=== PATIENT | female | born 1945 | race Caucasian/White ===

== ENCOUNTER 2016-10-08 12:34 | Inpatient (IN) | payer OTHER, MEDICARE ==
[~2016-10-08] VITALS: Ht 157.5 cm; Wt 48.5 kg
[~2016-10-08 12:34] MED LIST: ASPI-605 GT; ASPI81TA31 PO; DONE10TA4 GT; DONE10TA44 PO; DULO60CA45 PO; LEVO75TA GT; LEVO75TA7 PO; LISI-607 PO; LISI2.5T2 GT; MELO-270 GT; MELO-270 PO; METO25TA6 PO; OXYB5TAB11 GT; OXYB5TAB11 PO; QUET25TA GT; QUET25TA PO; SULF1TAB48 PO; TRIA60LO4 TP
--- NOTE | 2016-10-08 12:48 | NUR ---
Pt brought to bed [facility] , pt on monitor and ekg done.
[2016-10-08] MEDS ORDERED: METO25TA6 GT (12:56)
[2016-10-08] MEDS ORDERED: SULF1TAB48 GT (12:56)
[2016-10-08] MEDS ORDERED: ACET-2154 GT (12:56)
[2016-10-08] MEDS ORDERED: LISI-607 GT (12:56)
[2016-10-08] MEDS ORDERED: DONE10TA44 GT (12:56)
[2016-10-08] MEDS ORDERED: LORAZEPAM 2 MG/1 ML VIAL IM ONE (13:00)
[2016-10-08] MEDS ORDERED: diphenhydrAMINE 50 MG/1 ML VIAL IM ONE (13:00)
[2016-10-08] MEDS ORDERED: HALOPERIDOL LACTATE 5 MG/1 ML VIAL IM ONE (13:00)
--- NOTE | 2016-10-08 13:09 | NUR ---
Pt to ct via [facility].
[2016-10-08 13:12] LABS: BASOPHILS # (AUTO) 0.2 K/uL (0.0-0.2); EOSINOPHILS # (AUTO) 0.1 K/uL (0.0-0.7); EOSINOPHILS % (AUTO) 0.8 % (0.0-7.0); HEMATOCRIT 38.1 % (37.0-47.0); HEMOGLOBIN 12.8 g/dL (12.0-16.0); LYMPHOCYTES # (AUTO) 1.8 K/uL (0.8-4.8); LYMPHOCYTES % (AUTO) 11.6 % (20.5-51.5); MEAN CORPUSCULAR HEMOGLOBIN 32.8 uug (27.0-31.0); MEAN CORPUSCULAR HGB CONC 34 g/dL (32.0-37.0); MEAN CORPUSCULAR VOLUME 97.4 fL (81.0-99.0); MONOCYTES # (AUTO) 0.9 K/uL (0.1-1.30); MONOCYTES % (AUTO) 6.1 % (0.0-11.0); NEUTROPHILS # (AUTO) 12.5 K/uL (1.8-8.9); NEUTROPHILS % (AUTO) 80.5 % (38.5-71.5); PLATELET COUNT (AUTO) 282 K/uL (150-450); RED BLOOD CELL COUNT(AUTO) 3.91 MIL/uL (4.20-5.40); RED CELL DISTRIBUTION WIDTH 12.3 % (11.5-14.5); WHITE BLOOD COUNT (AUTO) 15.5 K/uL (4.0-11.2)
[2016-10-08] MEDS ORDERED: HALOPERIDOL LACTATE 5 MG/1 ML VIAL ONE (13:12)
[2016-10-08] MEDS ORDERED: LORAZEPAM 2 MG/1 ML VIAL ONE (13:12)
[2016-10-08] MEDS ORDERED: diphenhydrAMINE 50 MG/1 ML VIAL ONE (13:12)
[2016-10-08 13:16] LABS: CALCIUM 9.5 mg/dL (8.5-10.1); CHLORIDE 103 mmol/L (98-107); CREATININE 1.3 mg/dL (0.6-1.3); GFR 41 mL/min (>60); GLUCOSE 107 mg/dL (74-106); POTASSIUM 3.9 mmol/L (3.5-5.1); SODIUM SERUM 143 mmol/L (136-145); UREA NITROGEN, BLOOD 25 mg/dL (7-18)
[2016-10-08 13:17] LABS: CARBON DIOXIDE 33 mmol/L (21-32)
[2016-10-08 13:21] LABS: ACETAMINOPHEN 5.8 ug/mL (10-30); ALANINE AMINOTRANSFERASE 18 U/L (14-59); ALBUMIN 3.7 g/dL (3.4-5.0); ALKALINE PHOSPHATASE 70 U/L (50-136); ASPARTATE AMINOTRANSFERASE 22 U/L (15-37); BILIRUBIN,DIRECT 0.2 mg/dL (0.0-0.2); BILIRUBIN,TOTAL 1.1 mg/dL (0.2-1.0); TOTAL PROTEIN, SERUM 7.1 g/dL (6.4-8.2)
[2016-10-08 13:36] LABS: ETHANOL < 3 MG/DL (0-0)
--- NOTE | 2016-10-08 13:38 | NUR ---
PT HAS BUE AND RLE BRUISES, WELL CHEST AND LT OF FACE. PT HAS PREANAL REDNESS.
[2016-10-08 13:46] LABS: *BLOOD, URINE Trace-intact (NEGATIVE); *CLARITY,URINE SLIGHTLY CLOUDY (CLEAR); *COLOR,URINE YELLOW (YELLOW); *KETONES,URINE NEGATIVE (NEGATIVE); *PROTEIN,URINE 1+ (NEGATIVE); NITRITE, URINE NEGATIVE (NEGATIVE); PH,URINE 5.5 (5.0-8.0); UGLUCOSE NEGATIVE (NEGATIVE)
[2016-10-08 13:48] LABS: LEUKOCYTE ESTERASE ,URINE TRACE (NEGATIVE)
[2016-10-08 13:49] LABS: *BILIRUBIN,URIN 1+ (NEGATIVE)
[2016-10-08 13:49] LABS: AMMONIA < 10 umol/L (11-32)
[2016-10-08 13:55] LABS: ICTOTEST POSITIVE (NEGATIVE); RBC,URINE 0-3 /HPF (0-3)
[2016-10-08 13:56] LABS: BACTERIA,URINE NONE SEEN /HPF (NONE SEEN); SQUAMOUS EPITHELIAL CELL,UR MODERATE /HPF (NONE SEEN); YEAST,URINE FEW /HPF (NONE SEEN)
[2016-10-08 14:04] LABS: *AMPHETAMINE, URINE NEGATIVE (NEGATIVE); *BARBITURATE, URINE NEGATIVE (NEGATIVE); *CANNABINOID, URINE NEGATIVE (NEGATIVE); *COCCAINE, URINE NEGATIVE (NEGATIVE); *OPIATE, URINE NEGATIVE (NEGATIVE); *PHENCYCLIDINE SCREEN,URINE NEGATIVE (NEGATIVE)
--- NOTE | 2016-10-08 14:13 | NUR ---
[facility] COLLECTED AND SENT TO LAB, BELONGING LIST COMPLETED.
[2016-10-08] MEDS ORDERED: LEVOFLOXACIN 750MG/D5W 150 ML IV ONE ×2 (14:15→14:28)
[2016-10-08] MEDS ORDERED: IV NORMAL SALINE 1000 ML BAG IV ONE (14:15)
[2016-10-08] MEDS ORDERED: GENTAMICIN SULFATE INJ 80 MG in IV DEXTROSE 5% 100 ML IV ONE (14:15)
[2016-10-08] MEDS ORDERED: GENTAMICIN SULFATE 80 MG/2 ML VIAL ONE (14:28)
[2016-10-08 15:00] VITALS: BP 132/81
--- NOTE | 2016-10-08 15:00 | NUR ---
Admission note Patient admitted to Medsurg unit with Diagnosis of UTI. patient is alert and oriented to self only, patient able to knod her head, confused and disoriented to place time and situation, patient admitted with multiple bruises noted on Bilateral lower extremities and upper extremities in multiple stages of resolving, patient with large bruise on right forearm and right posterior shoulder, patient buttocks also with some redness some excoriation noted a this time, skin integrity issues present on admission , start interventions to decrease any occurrence of further issues. patient is anxious and restless unable to maintain concentration and eye focus during assessment possibly responding to stimuli, patient fearful during assessment , patient explained procedure of assessment during admission to decrease anxiety; patient with g-tube in place, no s/s of infection. patient high fall risk, sitter ordered. Patient has poor insight, attempts to pull at g-tube site, currently with abdominal binder in place, patient with soft mitten on left hand to reduce risk of pulling at g-tube, unable to comprehend. patient difficult to redirect poor insight, judgment impaired.
[2016-10-08] MEDS ORDERED: Z GUARD REMEDY PASTE 57 GM TUBE TOP PRN (16:45)
[2016-10-08] MEDS ORDERED: ONDANSETRON 4 MG/2 ML VIAL IV PRN (17:30)
[2016-10-08] MEDS ORDERED: MAGNESIUM HYDROXIDE 30 ML LIQUID UDC GT PRN ×2 (17:30→17:58)
[2016-10-08] MEDS ORDERED: LORAZEPAM 2 MG/1 ML VIAL IV ONE (18:00)
--- NOTE | 2016-10-08 19:00 | NUR ---
outreach educator TO TAKE F/U PICTURES OF BUTTOCKS BACK, LEFT ANTERIOR SHOULDER, JESUS LOWER EXTREMITIES BRUISING,RIGHT ARM BRUISINGLEFT CALF SCRATCH/REDNESS, SECONDARY TO PT WAS MOVING TOO MUCH.
--- NOTE | 2016-10-08 19:00 | NUR ---
PATIENT AWAKE BUT VERY CONFUSED, RESTLESS, TRIES TO PULL OUT TUBING, IV, GT TUBINGS, HAND MITTENS IN PLACE, CHECK FOR CIRCULATION AND PLACEMENT EVERY 30 MINUTES, SITTER AT BEDSIDE FOR SAFETY. NO SOB, NO CHEST PAIN NOTED.
[2016-10-08] MEDS: IV NS 1000 ML 1,000 ML IV PRN (19:05)
--- NOTE | 2016-10-08 20:17 | NUR ---
Clinical pharmacy note-Gentamicin dosing per pharmacy Subjective: To start gentamicin dosing on this 71 year old female patient for UTI/sepsis Objective: BUN 25 Scr 1.3 WBC 15.5 Temp 97.9 Ht 5'2" Wt 120 lbs Assessment/Plan: Patient had Gentamicn 80mg in ER today at 1437. Will continue Gentamicin 70mg IV every 13 hrs (first dose tomorrow at 0300) and draw peak and trough by 4th dose(not ordered yet) for expected peak 6 and trough 0.93. Will monitor renal function closely to adjust the dose if needed. Will follow daily.
[2016-10-08] MEDS: QUETIAPINE FUMARATE 25 MG TABLET GT PRN (21:30)
[2016-10-08] MEDS: OXYBUTYNIN CHLORIDE 5 MG TABLET GT SCH (21:30)
[2016-10-08] MEDS: DONEPEZIL 10 MG TABLET GT SCH (21:30)
--- NOTE | 2016-10-08 21:30 | NUR ---
PICTURES TAKEN, AND PLACE TO CHART. ABDOMINAL BINDER IN PLACE, CONTINUE 1;1 FOR SAFETY, KEPT CLEAN DRY AND COMFORTABLE.
[2016-10-08] MEDS: Z GUARD REMEDY PASTE 57 GM TUBE TOP SCH (21:41)
[2016-10-08] MEDS: METOPROLOL TARTRATE 25 MG TABLET GT SCH (21:42)
[2016-10-08] MEDS: FLUCONAZOLE 100 MG TABLET PO SCH (21:44)
[2016-10-08] MEDS: FIBERSOURCE HN 1000ML LIQUID GT SCH (22:18)
[2016-10-09] MEDS: GENTAMICIN SULFATE INJ 70 MG in IV DEXTROSE 5% 50 ML IV SCH ×2 (02:18→17:03)
[2016-10-09] MEDS: ACETAMINOPHEN 650 MG/20.3 ML LIQUID UDC GT PRN (02:27)
[2016-10-09] MEDS: IV NS 1000 ML 1,000 ML IV PRN ×2 (03:48→17:46)
[2016-10-09] MEDS: LEVOTHYROXINE SODIUM 75 MCG TABLET GT SCH ×2 (06:10→08:05)
--- NOTE | 2016-10-09 07:21 | NUR ---
PATIENT SLEEP ON AND OFF THROUGHT THE NIGHT, KEPT CLEAN, AND DRY TURN AND REPOSITION, GIVEN TYLENOL FOR PAIN WITH HELP AFTER 30 MIN. NO SOB, NO CHEST PAIN, A FIB. PATIENT HAS MULTIPLE EPISODES OF RESTLESSNESS, TRYING TO PULLED OUT TUBES, TRIED TO JUMP OUT OF THE BED, CONTINUE 1;1 ENDORSED TO NEXT SHIFT.
[2016-10-09 08:00] VITALS: BP 147/78
[2016-10-09] MEDS: METOPROLOL TARTRATE 25 MG TABLET GT SCH ×2 (08:05→17:00)
[2016-10-09] MEDS: OXYBUTYNIN CHLORIDE 5 MG TABLET GT SCH ×2 (08:05→17:00)
[2016-10-09] MEDS: LISINOPRIL 5 MG TABLET GT SCH (08:05)
[2016-10-09] MEDS: QUETIAPINE FUMARATE 25 MG TABLET GT PRN (08:05)
[2016-10-09] MEDS: FLUCONAZOLE 100 MG TABLET PO SCH (08:05)
[2016-10-09] MEDS: MELOXICAM 7.5 MG TABLET GT SCH (08:05)
[2016-10-09] MEDS: Z GUARD REMEDY PASTE 57 GM TUBE TOP SCH ×2 (08:06→21:28)
[2016-10-09] MEDS ORDERED: ACETAMINOPHEN 325 MG TABLET GT SCH (09:00)
[2016-10-09 09:11] LABS: BASOPHILS # (AUTO) 0.1 K/uL (0.0-0.2); BASOPHILS % (AUTO) 1.1 % (0.0-2.0); EOSINOPHILS # (AUTO) 0.3 K/uL (0.0-0.7); HEMATOCRIT 33.7 % (37.0-47.0); HEMOGLOBIN 11.4 g/dL (12.0-16.0); LYMPHOCYTES # (AUTO) 1.7 K/uL (0.8-4.8); LYMPHOCYTES % (AUTO) 12.4 % (20.5-51.5); MEAN CORPUSCULAR HEMOGLOBIN 32.4 uug (27.0-31.0); MEAN CORPUSCULAR HGB CONC 34 g/dL (32.0-37.0); MONOCYTES # (AUTO) 0.8 K/uL (0.1-1.30); NEUTROPHILS # (AUTO) 10.4 K/uL (1.8-8.9); NEUTROPHILS % (AUTO) 78.5 % (38.5-71.5); PLATELET COUNT (AUTO) 247 K/uL (150-450); RED BLOOD CELL COUNT(AUTO) 3.51 MIL/uL (4.20-5.40); WHITE BLOOD COUNT (AUTO) 13.3 K/uL (4.0-11.2)
[2016-10-09 09:15] LABS: CALCIUM 8.8 mg/dL (8.5-10.1); CREATININE 0.9 mg/dL (0.6-1.3); MAGNESIUM 1.9 mg/dL (1.8-2.4); PHOSPHOROUS 3.3 mg/dL (2.5-4.9); POTASSIUM 3.7 mmol/L (3.5-5.1)
[2016-10-09] MEDS ORDERED: ASPIRIN EC 81 MG TABLET.DR PO SCH (10:00)
[2016-10-09] MEDS: ASPIRIN 81 MG TAB.CHEW GT SCH (10:28)
[2016-10-09 12:00] VITALS: BP 123/77
--- NOTE | 2016-10-09 15:15 | NUR ---
Clinical pharmacy note-Gentamicin dosing per pharmacy Subjective: To continue gentamicin dosing on this 71 year old female patient for UTI/sepsis Objective: BUN 23 Scr 0.9 WBC 13.3 Temp 97.4 Ht 5'2" Wt 120 lbs Assessment/Plan: Will continue same dose of Gentamicin 70mg IV every 13 hrs for today for expected peak of 6.1 & trough of 1.0 . Second dose is due today at 1600. Plan to draw peak and trough around 4th dose(not ordered yet). Will monitor renal function closely to adjust the dose if needed. Will follow daily.
[2016-10-09] MEDS ORDERED: DIVALPROEX 125 MG TABLET.DR PO SCH (15:45)
[2016-10-09 16:24] VITALS: BP 118/47
[2016-10-09] MEDS: DULOXETINE 60 MG CAPSULE.DR PO SCH (17:00)
[2016-10-09] MEDS: QUETIAPINE FUMARATE 25 MG TABLET GT SCH ×2 (17:01→21:27)
[2016-10-09] MEDS: VALPROIC ACID 250 MG/5 ML LIQUID UDC GT SCH ×2 (17:01→21:27)
[2016-10-09] MEDS: DONEPEZIL 10 MG TABLET GT SCH (17:25)
--- NOTE | 2016-10-09 18:00 | NUR ---
pt did not urinate ,bladder scan done per md orders,pt is retaining 450 ml urine folly catheter inserted per md order
[2016-10-09 20:00] VITALS: BP 121/68
[2016-10-10] VITALS: BP 108/64
[2016-10-10] MEDS: ACETAMINOPHEN 650 MG/20.3 ML LIQUID UDC GT PRN (05:01)
[2016-10-10] MEDS: GENTAMICIN SULFATE INJ 70 MG in IV DEXTROSE 5% 50 ML IV SCH (05:02)
--- NOTE | 2016-10-10 06:20 | NUR ---
PATIENT AWAKE, WITH EPISODES OF RESTLESSNESS, CONTINUE ON 1;1 SITTER FOR SAFETY, PATIENT HAS EPISODES OF ELEVATED HR OF 140 TO 150 BUT DOES NOT SUSTAINED FOR LONG PERIOD OF TIME. PLACE A MD, AWAITING FROM JOSE LÓPEZ RESPONSE. V/S 132/73, HR 137 T 98. RR 18.
--- NOTE | 2016-10-10 06:40 | NUR ---
PLACE A CALL TO AGAIN AND SPOKE TO JOSE LÓPEZ NP AND NOTIFY HER ABOUT THE ELEVATED HR OF 150 TO 170, STATED SHE DOESNT WANT TO ORDER ANYTHING AT THIS PATIENT, INSTRUCTED TO CALL DR. FAJARDO AT 0700 FOR ORDERS. ENDORSE TO NEXT SHIFT. PATIENT AWAKE, NO SOB, NO CHEST NOTED, NO S/S OF DISTRESS.
[2016-10-10 08:00] VITALS: BP 134/84
[2016-10-10] MEDS: ASPIRIN 81 MG TAB.CHEW GT SCH (09:10)
[2016-10-10] MEDS: VALPROIC ACID 250 MG/5 ML LIQUID UDC GT SCH ×2 (09:10→21:34)
[2016-10-10] MEDS: OXYBUTYNIN CHLORIDE 5 MG TABLET GT SCH ×2 (09:10→17:00)
[2016-10-10] MEDS: METOPROLOL TARTRATE 25 MG TABLET GT SCH ×2 (09:11→14:48)
[2016-10-10] MEDS: MELOXICAM 7.5 MG TABLET GT SCH (09:11)
[2016-10-10] MEDS: LISINOPRIL 5 MG TABLET GT SCH (09:12)
[2016-10-10] MEDS: QUETIAPINE FUMARATE 25 MG TABLET GT SCH ×4 (09:12→21:34)
[2016-10-10] MEDS: LEVOTHYROXINE SODIUM 75 MCG TABLET GT SCH (09:12)
[2016-10-10] MEDS: DULOXETINE 60 MG CAPSULE.DR PO SCH (09:12)
[2016-10-10] MEDS: FLUCONAZOLE 100 MG TABLET PO SCH (09:12)
[2016-10-10] MEDS: Z GUARD REMEDY PASTE 57 GM TUBE TOP SCH ×2 (09:13→21:35)
[2016-10-10] MEDS ORDERED: AMIODARONE HCL IV 150 MG in IV DEXTROSE 5% 100 ML IV ONE (09:15)
[2016-10-10] MEDS ORDERED: AMIODARONE HCL IV 900 MG in IV DEXTROSE 5% 482 ML IV PRN (09:15)
--- NOTE | 2016-10-10 10:15 | NUR ---
REPORT RECEIVED DUE TO PT STATUS CHANGE TO ANGELIQUE.PT RECEIVED AWAKE,CONFUSED WITH PERIODS OF AGITATION.SITTER 1:1 AT BEDSIDE FOR SAFETY.PT NOTED WITH UNCONTROLLED AFIB ON MONITOR WITH RATE 140-150.AMIODORONE GTT BOLUS 150MG GIVEN.AMIODORONE GTT AT 1MG/MIN WILL BE GIVEN.
[2016-10-10 11:21] VITALS: BP 115/81
[2016-10-10] MEDS ORDERED: METOPROLOL TARTRATE 50 MG TABLET PO ONE (12:45)
--- NOTE | 2016-10-10 13:00 | NUR ---
AMIODORONE GTT WAS D/C.WILL CONTINUE TO MONITOR.
[2016-10-10 15:10] VITALS: BP 124/77
--- NOTE | 2016-10-10 15:36 | NUR ---
Clinical pharmacy note-Gentamicin dosing per pharmacy Subjective: To continue gentamicin dosing on this 71 year old female patient for UTI/sepsis Objective: BUN 23 Scr 0.9 (10/09) WBC 13.3(10/09) Temp 98 Ht 5'2" Wt 120 lbs Assessment/Plan: Will continue same dose of Gentamicin 70mg IV every 13 hrs for today for expected peak of 6.1 & trough of 1.0 . Plan to draw peak and trough around 4th dose(ordered today around 1800 dose). Will monitor renal function closely to adjust the dose if needed. Will follow daily.
[2016-10-10] MEDS: DONEPEZIL 10 MG TABLET GT SCH (18:00)
[2016-10-10] MEDS: IV NS 1000 ML 1,000 ML IV PRN (19:30)
--- NOTE | 2016-10-10 19:30 | NUR ---
RESTING IN BED, CALM AND COMFORTABLE. NO ACUTE DISTRESS NOTED, SITTER AT BEDSIDE. NEEDS ATTENDED. CALL LIGHT WITHIN REACH. WILL CONTINUE TO MONITOR
[2016-10-10 20:00] VITALS: BP 100/64
[2016-10-10] MEDS: CLOTRIMAZOLE 1% CREAM 30 GM TUBE TOP SCH (21:35)
[2016-10-11 06:21] VITALS: BP 110/60
--- NOTE | 2016-10-11 06:32 | NUR ---
CONTINUES TO BE AWAKE, ONLY SLEPT FOR A FEW. CONTINUES TO BE CONFUSED, STILL A LITTLE RESTLESS BUT NO AGITATION NOTED. ALL DUE MEDS GIVEN ORDERED. 1:1 SITTER AT BEDSIDE. KEPT CLEAN AND DRY AT ALL TIMES. NEEDS ATTENDED. NO ACUTE DISTRESS NOTED.
[2016-10-11] MEDS: IV NS 1000 ML 1,000 ML IV PRN ×2 (06:41→21:24)
[2016-10-11 06:47] LABS: CALCIUM 8.7 mg/dL (8.5-10.1); CREATININE 0.8 mg/dL (0.6-1.3); MAGNESIUM 1.7 mg/dL (1.8-2.4); POTASSIUM 3.5 mmol/L (3.5-5.1)
[2016-10-11 06:49] LABS: BASOPHILS # (AUTO) 0.1 K/uL (0.0-0.2); BASOPHILS % (AUTO) 0.7 % (0.0-2.0); EOSINOPHILS # (AUTO) 0.2 K/uL (0.0-0.7); EOSINOPHILS % (AUTO) 2.1 % (0.0-7.0); HEMATOCRIT 33.3 % (37.0-47.0); HEMOGLOBIN 11.2 g/dL (12.0-16.0); LYMPHOCYTES # (AUTO) 1.5 K/uL (0.8-4.8); LYMPHOCYTES % (AUTO) 13.3 % (20.5-51.5); MEAN CORPUSCULAR HEMOGLOBIN 33.1 uug (27.0-31.0); MEAN CORPUSCULAR HGB CONC 34 g/dL (32.0-37.0); MONOCYTES # (AUTO) 0.6 K/uL (0.1-1.30); MONOCYTES % (AUTO) 5.1 % (0.0-11.0); NEUTROPHILS # (AUTO) 8.9 K/uL (1.8-8.9); NEUTROPHILS % (AUTO) 78.8 % (38.5-71.5); PLATELET COUNT (AUTO) 233 K/uL (150-450); RED BLOOD CELL COUNT(AUTO) 3.39 MIL/uL (4.20-5.40); RED CELL DISTRIBUTION WIDTH 11.9 % (11.5-14.5); WHITE BLOOD COUNT (AUTO) 11.3 K/uL (4.0-11.2)
[2016-10-11] MEDS: METOPROLOL TARTRATE 25 MG TABLET GT SCH (09:00)
[2016-10-11] MEDS: VALPROIC ACID 250 MG/5 ML LIQUID UDC GT SCH ×2 (09:34→21:23)
[2016-10-11] MEDS: OXYBUTYNIN CHLORIDE 5 MG TABLET GT SCH ×2 (09:34→17:28)
[2016-10-11] MEDS: MELOXICAM 7.5 MG TABLET GT SCH (09:34)
[2016-10-11] MEDS: ASPIRIN 81 MG TAB.CHEW GT SCH (09:34)
[2016-10-11] MEDS: QUETIAPINE FUMARATE 25 MG TABLET GT SCH ×4 (09:35→21:23)
[2016-10-11] MEDS: FLUCONAZOLE 100 MG TABLET PO SCH (09:35)
[2016-10-11] MEDS: LEVOTHYROXINE SODIUM 75 MCG TABLET GT SCH (09:35)
[2016-10-11] MEDS: DULOXETINE 60 MG CAPSULE.DR PO SCH (09:35)
[2016-10-11] MEDS: Z GUARD REMEDY PASTE 57 GM TUBE TOP SCH ×2 (09:36→21:24)
[2016-10-11] MEDS: CLOTRIMAZOLE 1% CREAM 30 GM TUBE TOP SCH ×2 (09:36→21:23)
[2016-10-11 10:50] VITALS: BP 116/45
[2016-10-11] MEDS ORDERED: METOPROLOL TARTRATE 25 MG TABLET GT SCH (11:30)
[2016-10-11] MEDS: METOPROLOL TARTRATE 50 MG TABLET GT SCH ×2 (11:57→21:23)
[2016-10-11] MEDS ORDERED: MAGNESIUM OXIDE 400 MG TABLET PO ONE (12:00)
[2016-10-11] MEDS: MAGNESIUM SULFATE/D5W 100 ML IV SCH ×2 (12:03→13:18)
[2016-10-11 12:31] VITALS: BP 119/66
[2016-10-11 15:23] VITALS: BP 133/71
--- NOTE | 2016-10-11 16:26 | NUR ---
Spoke to both Jayne and Delaney from [facility] Admission and they stated that their DON and Respiratory Therapist declined the re-admit because the patient's family were not happy with their care and is threatening to call the health department on them. Left a message to her daughter, Jessica Garcia [ ], and requested to call back to discuss discharge planning.
[2016-10-11] MEDS: DONEPEZIL 10 MG TABLET GT SCH (17:28)
--- NOTE | 2016-10-11 19:30 | NUR ---
ASLEEP ON BED BUT CAN BE AWAKEN. NO ACUTE DISTRESS NOTED. WITH 1:1 SITTER AT BEDSIDE. NEEDS ATTENDED. WILL CONTINUE TO MONITOR
[2016-10-11] MEDS: FIBERSOURCE HN 1000ML LIQUID GT SCH (21:24)
[2016-10-12 06:39] VITALS: BP 114/83
[2016-10-12 06:48] LABS: CALCIUM 8.2 mg/dL (8.5-10.1); CREATININE 0.8 mg/dL (0.6-1.3); POTASSIUM 3.4 mmol/L (3.5-5.1)
[2016-10-12] MEDS ORDERED: POTASSIUM CHLORIDE 20 MEQ POWDER PACKET GT ONE (09:30)
[2016-10-12] MEDS ORDERED: POTASSIUM CHLORIDE 20 MEQ TAB.PRT.SR PO ONE (09:30)
[2016-10-12] MEDS: ASPIRIN 81 MG TAB.CHEW GT SCH (09:53)
[2016-10-12] MEDS: VALPROIC ACID 250 MG/5 ML LIQUID UDC GT SCH ×2 (09:54→20:52)
[2016-10-12] MEDS: QUETIAPINE FUMARATE 25 MG TABLET GT SCH ×4 (09:54→20:53)
[2016-10-12] MEDS: MELOXICAM 7.5 MG TABLET GT SCH (09:54)
[2016-10-12] MEDS: METOPROLOL TARTRATE 50 MG TABLET GT SCH ×2 (09:54→20:53)
[2016-10-12] MEDS: OXYBUTYNIN CHLORIDE 5 MG TABLET GT SCH ×2 (09:54→17:00)
[2016-10-12] MEDS: LEVOTHYROXINE SODIUM 75 MCG TABLET GT SCH (09:54)
[2016-10-12] MEDS: DULOXETINE 60 MG CAPSULE.DR PO SCH (09:54)
[2016-10-12] MEDS: Z GUARD REMEDY PASTE 57 GM TUBE TOP SCH ×2 (09:55→20:53)
[2016-10-12] MEDS: CLOTRIMAZOLE 1% CREAM 30 GM TUBE TOP SCH ×2 (09:55→21:03)
[2016-10-12 11:21] VITALS: BP 136/78
[2016-10-12] MEDS: IV NS 1000 ML 1,000 ML IV PRN ×2 (13:56→23:02)
[2016-10-12 15:28] VITALS: BP 111/72
[2016-10-12] MEDS: DONEPEZIL 10 MG TABLET GT SCH (17:21)
--- NOTE | 2016-10-12 19:30 | NUR ---
received pt in bed asleep easily awaken in no acute distress. sitter at bedside for safety. will continue to monitor.
[2016-10-12 20:00] VITALS: BP 126/78
--- NOTE | 2016-10-13 05:00 | NUR ---
sitter at bedside for safety. safety maintained. gifford remains intact and patent. gtube feeding as ordered. in no acute distress
[2016-10-13 06:00] VITALS: BP 132/83
--- NOTE | 2016-10-13 07:30 | NUR ---
RECEIVED PATIENT IN THE DANNY/CHAIR AWAKE ALERT TO SELF ONLY WITH CONFUSSION AND DISORIENTATION AGITATED AND RESTLESS WITH MITTENS ON THE LEFT WRIST RT ARM AND WRIST IS FLACCID PATIENT HAS A SITTER AT HER BEDSIDE ATTEMPTS TO DISTRACT PATIENT MADE COMFORTABLE.
[2016-10-13 08:00] VITALS: BP 135/55
[2016-10-13 08:17] LABS: CALCIUM 8.6 mg/dL (8.5-10.1); CREATININE 0.8 mg/dL (0.6-1.3); MAGNESIUM 1.8 mg/dL (1.8-2.4); PHOSPHOROUS 3.1 mg/dL (2.5-4.9); POTASSIUM 3.6 mmol/L (3.5-5.1)
[2016-10-13 08:19] LABS: BASOPHILS # (AUTO) 0.1 K/uL (0.0-0.2); BASOPHILS % (AUTO) 0.7 % (0.0-2.0); EOSINOPHILS # (AUTO) 0.3 K/uL (0.0-0.7); HEMOGLOBIN 12.8 g/dL (12.0-16.0); LYMPHOCYTES # (AUTO) 1.7 K/uL (0.8-4.8); LYMPHOCYTES % (AUTO) 13.5 % (20.5-51.5); MEAN CORPUSCULAR HEMOGLOBIN 33.1 uug (27.0-31.0); MEAN CORPUSCULAR HGB CONC 34 g/dL (32.0-37.0); MEAN CORPUSCULAR VOLUME 96.6 fL (81.0-99.0); MONOCYTES # (AUTO) 0.7 K/uL (0.1-1.30); MONOCYTES % (AUTO) 5.8 % (0.0-11.0); NEUTROPHILS # (AUTO) 9.8 K/uL (1.8-8.9); RED CELL DISTRIBUTION WIDTH 12.1 % (11.5-14.5); WHITE BLOOD COUNT (AUTO) 12.6 K/uL (4.0-11.2)
[2016-10-13 08:40] LABS: HEMATOCRIT 37.3 % (37.0-47.0); RED BLOOD CELL COUNT(AUTO) 3.86 MIL/uL (4.20-5.40)
[2016-10-13] MEDS: QUETIAPINE FUMARATE 25 MG TABLET GT SCH ×4 (09:13→21:02)
[2016-10-13] MEDS: LEVOTHYROXINE SODIUM 75 MCG TABLET GT SCH (09:13)
[2016-10-13] MEDS: DULOXETINE 60 MG CAPSULE.DR PO SCH (09:13)
[2016-10-13] MEDS: OXYBUTYNIN CHLORIDE 5 MG TABLET GT SCH ×2 (09:13→16:29)
[2016-10-13] MEDS: ASPIRIN 81 MG TAB.CHEW GT SCH (09:13)
[2016-10-13] MEDS: MELOXICAM 7.5 MG TABLET GT SCH (09:13)
[2016-10-13] MEDS: VALPROIC ACID 250 MG/5 ML LIQUID UDC GT SCH ×2 (09:13→21:05)
[2016-10-13] MEDS: METOPROLOL TARTRATE 50 MG TABLET GT SCH ×2 (09:14→21:04)
[2016-10-13] MEDS: CLOTRIMAZOLE 1% CREAM 30 GM TUBE TOP SCH ×2 (09:14→21:00)
[2016-10-13] MEDS ORDERED: POTASSIUM CHLORIDE 20 MEQ TAB.PRT.SR PO ONE (09:15)
[2016-10-13] MEDS: Z GUARD REMEDY PASTE 57 GM TUBE TOP SCH ×2 (09:15→21:00)
[2016-10-13] MEDS ORDERED: POTASSIUM CHLORIDE 20 MEQ POWDER PACKET GT ONE (09:15)
[2016-10-13 11:03] LABS: PLATELET COUNT (AUTO) 277 K/uL (150-450)
[2016-10-13 12:00] VITALS: BP 105/66
--- NOTE | 2016-10-13 12:00 | NUR ---
PATIENT IS AWAKE SEATED ON THE DANNY CHAIR VERY CONFUSED AND DISORIENTED AND AGITATED AND RESTLESS WITH MITTEN ON HER LEFT WRIST CHECKED Q2H FOR CIRCULATION.REMAIN ON ONE ON ONE SITTER FOR SAFETY PATIENT PULLS ON THE GT AND IV LINE.
--- NOTE | 2016-10-13 14:24 | NUR ---
IV SITE ON THE RIGHT FOREARM INFILTERATED INSERTED TO HER RIGHT WRIST AND WRAPPED WITH KIRLIX.
--- NOTE | 2016-10-13 14:44 | NUR ---
CALLED AND SPOKE WITH DR SMITH RE PATIENT IS VERY AGITATED AND RESTLESS AND THE DYE RANGE OPERATOR CLOTH IS ALSO RECOMMENDING INCREASING HER FEEDING RATE ANS DECREASING THE HOLD TIME WITH ORDERS AND NOTED.
[2016-10-13] MEDS: LORAZEPAM 2 MG/1 ML VIAL IV PRN (14:52)
[2016-10-13 16:00] VITALS: BP 90/59
[2016-10-13] MEDS: DONEPEZIL 10 MG TABLET GT SCH (17:14)
--- NOTE | 2016-10-13 18:00 | NUR ---
PATIENT IS RESTING WITH EYES CLOSED EASILY AROUSABLE AT THIS TIME.TUBE FEEDING REMAINS IN PROGRESS AT 60ML/HR ORDERED WITH ABOUT 5ML GASTRIS RESIDUAL AT THIS TIME SHE HAS ONE ON ONE SITTER FOR OBSERVATION.MADE COMFORTABLE AND WILL CONTINUE TO OBSERVE PATIENT
[2016-10-13] MEDS: FIBERSOURCE HN 1000ML LIQUID GT PRN (18:13)
[2016-10-13 20:00] VITALS: BP 117/74
--- NOTE | 2016-10-14 02:53 | NUR ---
PATIENT IS RESTING WITH EYES CLOSED EASILY AROUSABLE AT THIS TIME. PUT NEW TUBE FEEDING AT 60ML/HR ORDERED WITH ABOUT 5ML GASTRIS RESIDUAL AT THIS TIME SHE HAS ONE ON ONE SITTER FOR OBSERVATION.MADE COMFORTABLE AND WILL CONTINUE TO OBSERVE PATIENT Addendum: 10/14/16 at 0359 by RAJEEV HODGSON RN WRONG PT.CHARTING
[2016-10-14] MEDS: LORAZEPAM 2 MG/1 ML VIAL IV PRN ×2 (03:36→11:28)
[2016-10-14 06:27] VITALS: BP 113/73
[2016-10-14 07:28] LABS: BASOPHILS # (AUTO) 0.1 K/uL (0.0-0.2); BASOPHILS % (AUTO) 1.3 % (0.0-2.0); EOSINOPHILS # (AUTO) 0.3 K/uL (0.0-0.7); EOSINOPHILS % (AUTO) 4.1 % (0.0-7.0); HEMATOCRIT 35.3 % (37.0-47.0); HEMOGLOBIN 11.7 g/dL (12.0-16.0); LYMPHOCYTES # (AUTO) 1.6 K/uL (0.8-4.8); LYMPHOCYTES % (AUTO) 20.9 % (20.5-51.5); MEAN CORPUSCULAR HEMOGLOBIN 32.7 uug (27.0-31.0); MEAN CORPUSCULAR HGB CONC 33 g/dL (32.0-37.0); MEAN CORPUSCULAR VOLUME 98.8 fL (81.0-99.0); MONOCYTES # (AUTO) 0.6 K/uL (0.1-1.30); MONOCYTES % (AUTO) 7.5 % (0.0-11.0); NEUTROPHILS # (AUTO) 5.2 K/uL (1.8-8.9); NEUTROPHILS % (AUTO) 66.2 % (38.5-71.5); PLATELET COUNT (AUTO) 217 K/uL (150-450); RED BLOOD CELL COUNT(AUTO) 3.57 MIL/uL (4.20-5.40); RED CELL DISTRIBUTION WIDTH 12.6 % (11.5-14.5); WHITE BLOOD COUNT (AUTO) 7.8 K/uL (4.0-11.2)
[2016-10-14 08:00] VITALS: BP 115/72
--- NOTE | 2016-10-14 08:00 | NUR ---
PATIENT IS ASLEEP BUT IS EASILY AROUSABLE ON ROUNDS WITH NO FACIAL GRIMACING AT THIS TIME RECEIVING GT FEEDINGS AT ML/HR ORDERED WITH ABOUT 7ML OF RESIDUAL WITH NO NAUSEA OR VOMITING AT THIS TIME.SHE HAS LEFT WRIST MITTEN FOR SAFETY HAS TENDENCY TO PULL ON TUBES RELEASED EVERY 2 HOURS FOR CIRCULATION.SHE REMAINS ON ONE ON ONE SITTER OBSERVATION FOR SAFETY.NOT IN DISTRESS AT THIS TIME.
[2016-10-14 08:18] LABS: ALBUMIN 2.6 g/dL (3.4-5.0); BILIRUBIN,TOTAL 0.8 mg/dL (0.2-1.0); CALCIUM 8.2 mg/dL (8.5-10.1); CREATININE 0.6 mg/dL (0.6-1.3); MAGNESIUM 1.9 mg/dL (1.8-2.4); PHOSPHOROUS 3.2 mg/dL (2.5-4.9); TOTAL PROTEIN, SERUM 5.4 g/dL (6.4-8.2)
[2016-10-14] MEDS: OXYBUTYNIN CHLORIDE 5 MG TABLET GT SCH ×2 (08:28→17:08)
[2016-10-14] MEDS: ASPIRIN 81 MG TAB.CHEW GT SCH (08:28)
[2016-10-14] MEDS: LEVOTHYROXINE SODIUM 75 MCG TABLET GT SCH (08:28)
[2016-10-14] MEDS: VALPROIC ACID 250 MG/5 ML LIQUID UDC GT SCH ×2 (08:28→22:00)
[2016-10-14] MEDS: MELOXICAM 7.5 MG TABLET GT SCH (08:28)
[2016-10-14] MEDS: METOPROLOL TARTRATE 50 MG TABLET GT SCH ×2 (08:30→22:00)
[2016-10-14] MEDS: QUETIAPINE FUMARATE 25 MG TABLET GT SCH ×4 (08:30→22:00)
[2016-10-14] MEDS: DULOXETINE 60 MG CAPSULE.DR PO SCH (08:31)
[2016-10-14] MEDS: CLOTRIMAZOLE 1% CREAM 30 GM TUBE TOP SCH ×2 (08:31→23:42)
[2016-10-14] MEDS: Z GUARD REMEDY PASTE 57 GM TUBE TOP SCH ×2 (08:32→23:42)
--- NOTE | 2016-10-14 10:00 | NUR ---
LEFT WRIST MITTENS REMOVED AT THIS TIME AND WILL CONTINUE TO MONITOR AND REDIRECT PATIENT.
[2016-10-14 11:43] VITALS: BP 121/83
--- NOTE | 2016-10-14 15:00 | NUR ---
PATIENT REMAIN ON GT FEEDINGS ORDERED AND IS TOLERATING IT WELL FLUSHED PER PROTOCOL.
--- NOTE | 2016-10-14 15:16 | NUR ---
Faxed inquiries to the following contracted facilities: [facility] - - Admissions is unavailable. Will call back. [facility] - - Admissions is unavailable. Will call back. [facility] - -Admissions is unavailable. Will call back. [facility] - [place] will call back once DON reviews case. [facility] - -Admissions is unavailable. Will call back. [facility] - -Admissions is unavailable. Will call back. [facility] - - No beds available
[2016-10-14 15:44] VITALS: BP 107/66
[2016-10-14] MEDS: DONEPEZIL 10 MG TABLET GT SCH (17:08)
[2016-10-14] MEDS: FIBERSOURCE HN 1000ML LIQUID GT PRN (17:31)
--- NOTE | 2016-10-14 17:59 | NUR ---
LEFT WRIST MITTENS HAS BEEN OFF SINCE 1000 THIS AM EVEN THOUGH PATIENT HAS MADE ATTEMPTS TO PULL ON HER IV SITE AND THE GT HER ASSIGNED SITTER HAS BEEN ABLE TO REDIRECT HER AND KEEP HER SAFE. SO MITTENS HAS BEEN DISCONTINUED AT THIS TIME AND WILL CONTINUE TO EVALUATE AND MANAGE PATIENT WITHOUT MITTENS.
[2016-10-14 19:45] VITALS: BP 107/70
--- NOTE | 2016-10-14 19:45 | NUR ---
PT RECEIVED IN BED RESTING COMFORTABLY WITH SITTER AT BEDSIDE. REMAINS CONFUSED. PT HAS G-TUBE RUNNING FIBER SOURCE AT 60ML/HR. QUINONES CATHETER IN PLACE. NO ACUTE DISTRESS NOTED. WILL CONTINUE TO MONITOR FOR SAFETY.
--- NOTE | 2016-10-14 23:00 | NUR ---
PATIENT MEDICATIONS AT 2100 HELD, B/P 100/62, PT OBSERVED ALSO TO BE VERY SLEEPY, NO ACUTE DISTRESS NOTED. WILL NOTIFY MD. SAFETY MEASURES PROVIDED. Addendum: 10/15/16 at 0242 by MARY GUZMAN RN gtube intact, residual 7cc.
[2016-10-15] MEDS: LORAZEPAM 2 MG/1 ML VIAL IV PRN (00:56)
--- NOTE | 2016-10-15 01:29 | NUR ---
PT OBSERVED TO BE RESTLESS AND ANXIOUS, GIVEN ATIVAN PRN ORDERED. VITAL SIGNS 134/90, HEART RATE 80. 1:1 AT PT BEDSIDE. SAFETY MEASURES MAINTAINED.
--- NOTE | 2016-10-15 03:00 | NUR ---
Pt remains restless and anxious. comfort measures provided. no acute distress noted. 1:1 sitter at bedside.
[2016-10-15 04:00] VITALS: BP 139/95
--- NOTE | 2016-10-15 06:30 | NUR ---
pt pulled out hep lock in right wrist. unable to reinsert IV x3. Pereyra catheter intact. Pt still receiving feeding at 60ml/hr, 5 cc residual. safety measures provided. 1:1 sitter at bedside.
--- NOTE | 2016-10-15 07:30 | NUR ---
restless and trying to get out of bed up on chair with max assist
[2016-10-15 08:00] VITALS: BP 102/68
[2016-10-15] MEDS: VALPROIC ACID 250 MG/5 ML LIQUID UDC GT SCH ×2 (08:10→22:15)
[2016-10-15] MEDS: ASPIRIN 81 MG TAB.CHEW GT SCH (08:11)
[2016-10-15] MEDS: QUETIAPINE FUMARATE 25 MG TABLET GT SCH ×4 (08:11→22:14)
[2016-10-15] MEDS: LEVOTHYROXINE SODIUM 75 MCG TABLET GT SCH (08:11)
[2016-10-15] MEDS: MELOXICAM 7.5 MG TABLET GT SCH (08:11)
[2016-10-15] MEDS: DULOXETINE 60 MG CAPSULE.DR PO SCH (08:11)
[2016-10-15] MEDS: OXYBUTYNIN CHLORIDE 5 MG TABLET GT SCH ×2 (08:11→16:59)
[2016-10-15] MEDS: CLOTRIMAZOLE 1% CREAM 30 GM TUBE TOP SCH ×2 (08:12→21:00)
[2016-10-15] MEDS: Z GUARD REMEDY PASTE 57 GM TUBE TOP SCH ×2 (08:12→21:00)
--- NOTE | 2016-10-15 08:30 | NUR ---
MEDICATED ROUTINELY WITH DEPAKOTE AND SEROQUEL VIA GT
[2016-10-15] MEDS: METOPROLOL TARTRATE 50 MG TABLET GT SCH ×2 (09:00→22:15)
--- NOTE | 2016-10-15 11:11 | NUR ---
resting with eyes closed 1:1 sitter. closely monitored
--- NOTE | 2016-10-15 14:36 | NUR ---
NO ACUTE CHANGE CONTINUE PLAN OF CARE
[2016-10-15 16:00] VITALS: BP 117/56
[2016-10-15] MEDS: DONEPEZIL 10 MG TABLET GT SCH (16:59)
[2016-10-15 21:20] VITALS: BP 133/55
[2016-10-16] MEDS: LORAZEPAM 2 MG/1 ML VIAL IV PRN (00:25)
[2016-10-16 05:39] VITALS: BP 116/75
[2016-10-16 06:37] LABS: BASOPHILS # (AUTO) 0.1 K/uL (0.0-0.2); BASOPHILS % (AUTO) 0.9 % (0.0-2.0); EOSINOPHILS # (AUTO) 0.4 K/uL (0.0-0.7); EOSINOPHILS % (AUTO) 4.7 % (0.0-7.0); HEMATOCRIT 35.6 % (37.0-47.0); HEMOGLOBIN 12.2 g/dL (12.0-16.0); LYMPHOCYTES % (AUTO) 21.5 % (20.5-51.5); MEAN CORPUSCULAR HEMOGLOBIN 33.4 uug (27.0-31.0); MEAN CORPUSCULAR HGB CONC 34 g/dL (32.0-37.0); MEAN CORPUSCULAR VOLUME 97.4 fL (81.0-99.0); MONOCYTES # (AUTO) 0.7 K/uL (0.1-1.30); MONOCYTES % (AUTO) 7.8 % (0.0-11.0); NEUTROPHILS # (AUTO) 6.1 K/uL (1.8-8.9); NEUTROPHILS % (AUTO) 65.1 % (38.5-71.5); PLATELET COUNT (AUTO) 233 K/uL (150-450); RED BLOOD CELL COUNT(AUTO) 3.66 MIL/uL (4.20-5.40); RED CELL DISTRIBUTION WIDTH 12.3 % (11.5-14.5); WHITE BLOOD COUNT (AUTO) 9.3 K/uL (4.0-11.2)
[2016-10-16 07:34] LABS: CALCIUM 8.6 mg/dL (8.5-10.1); CREATININE 0.7 mg/dL (0.6-1.3); PHOSPHOROUS 3.8 mg/dL (2.5-4.9); POTASSIUM 3.7 mmol/L (3.5-5.1)
--- NOTE | 2016-10-16 08:02 | NUR ---
PT GIVEN ATIVAN LAST NIGHT DUE TO AGITATION AND FALL ASLEEP. TOLERATED FEEDING OVERNIGHT 5 CC RESIDUAL, OFF FEEDING THIS 0630 THIS MORNING.
[2016-10-16] MEDS: ASPIRIN 81 MG TAB.CHEW GT SCH (08:14)
[2016-10-16] MEDS: OXYBUTYNIN CHLORIDE 5 MG TABLET GT SCH ×2 (08:14→17:04)
[2016-10-16] MEDS: QUETIAPINE FUMARATE 25 MG TABLET GT SCH ×4 (08:14→21:55)
[2016-10-16] MEDS: LEVOTHYROXINE SODIUM 75 MCG TABLET GT SCH (08:14)
[2016-10-16] MEDS: MELOXICAM 7.5 MG TABLET GT SCH (08:14)
[2016-10-16] MEDS: VALPROIC ACID 250 MG/5 ML LIQUID UDC GT SCH ×2 (08:14→21:56)
[2016-10-16] MEDS: DULOXETINE 60 MG CAPSULE.DR PO SCH (08:14)
[2016-10-16] MEDS: METOPROLOL TARTRATE 50 MG TABLET GT SCH ×2 (08:15→21:56)
[2016-10-16] MEDS: CLOTRIMAZOLE 1% CREAM 30 GM TUBE TOP SCH ×2 (08:17→21:00)
[2016-10-16] MEDS: Z GUARD REMEDY PASTE 57 GM TUBE TOP SCH ×2 (08:17→23:44)
[2016-10-16] MEDS: ACETAMINOPHEN 650 MG/20.3 ML LIQUID UDC GT PRN (10:41)
--- NOTE | 2016-10-16 11:00 | NUR ---
VERY RESTLESS AND TRYING TO GET OUT OF CHAIR CONTINUE 1:1 SITTER
[2016-10-16 12:13] VITALS: BP 109/71
[2016-10-16 12:51] LABS: *BLOOD, URINE 3+ (NEGATIVE); *CLARITY,URINE CLOUDY (CLEAR); *COLOR,URINE Brown (YELLOW); *KETONES,URINE NEGATIVE (NEGATIVE); *PROTEIN,URINE 2+ (NEGATIVE); LEUKOCYTE ESTERASE ,URINE 1+ (NEGATIVE); NITRITE, URINE NEGATIVE (NEGATIVE); PH,URINE 7.5 (5.0-8.0); UGLUCOSE NEGATIVE (NEGATIVE)
[2016-10-16 12:55] LABS: *BILIRUBIN,URIN 1+ (NEGATIVE)
[2016-10-16 12:57] LABS: BACTERIA,URINE MODERATE /HPF (NONE SEEN); RBC,URINE TNTC /HPF (0-3); SQUAMOUS EPITHELIAL CELL,UR FEW /HPF (NONE SEEN)
--- NOTE | 2016-10-16 14:22 | NUR ---
RESTING WITH EYES CLOSED NO SIGNS OF DISTRESS, TOLERATING TF 60ML/HR
[2016-10-16 15:29] VITALS: BP 116/74
[2016-10-16] MEDS: DONEPEZIL 10 MG TABLET GT SCH (17:04)
[2016-10-16 19:00] VITALS: BP 119/83
--- NOTE | 2016-10-16 21:24 | NUR ---
Clotrimazole cream not given. Medication not available
[2016-10-16] MEDS ORDERED: CEFTRIAXONE 1 G in IV DEXTROSE 5% 50 ML IV SCH (23:00)
[2016-10-17] MEDS: FIBERSOURCE HN 1000ML LIQUID GT PRN (00:56)
[2016-10-17] MEDS ORDERED: CEFTRIAXONE 1 G VIAL ONE (01:10)
[2016-10-17] MEDS: LORAZEPAM 2 MG/1 ML VIAL IV PRN ×2 (01:36→13:23)
--- NOTE | 2016-10-17 02:24 | NUR ---
New IV site started. (R) Hand #[id number]. will continue to monitor
[2016-10-17 04:56] VITALS: BP 116/87
[2016-10-17] MEDS: VALPROIC ACID 250 MG/5 ML LIQUID UDC GT SCH ×2 (08:01→21:36)
[2016-10-17] MEDS: OXYBUTYNIN CHLORIDE 5 MG TABLET GT SCH ×2 (08:01→16:00)
[2016-10-17] MEDS: QUETIAPINE FUMARATE 25 MG TABLET GT SCH ×4 (08:01→21:36)
[2016-10-17] MEDS: LEVOTHYROXINE SODIUM 75 MCG TABLET GT SCH (08:01)
[2016-10-17] MEDS: DULOXETINE 60 MG CAPSULE.DR PO SCH (08:01)
[2016-10-17] MEDS: MELOXICAM 7.5 MG TABLET GT SCH (08:01)
[2016-10-17] MEDS: METOPROLOL TARTRATE 50 MG TABLET GT SCH ×2 (08:01→21:00)
[2016-10-17] MEDS: ASPIRIN 81 MG TAB.CHEW GT SCH (08:01)
[2016-10-17] MEDS: CLOTRIMAZOLE 1% CREAM 30 GM TUBE TOP SCH ×2 (08:02→21:42)
[2016-10-17] MEDS: Z GUARD REMEDY PASTE 57 GM TUBE TOP SCH ×2 (08:02→21:38)
[2016-10-17 12:03] VITALS: BP 129/81
[2016-10-17 15:45] VITALS: BP 90/58
[2016-10-17] MEDS: DONEPEZIL 10 MG TABLET GT SCH (17:18)
--- NOTE | 2016-10-17 19:45 | NUR ---
pt resting et arouses to name...hob up at 30 degrees for aspiration precautions. g tube infusing @ 60 ml per hour and flushes w/o difficulty at this time...no residual noted. remains on special bed...no distress noted at this time
[2016-10-17] MEDS: CEFTRIAXONE 1 G in IV DEXTROSE 5% 50 ML IV SCH (21:34)
[2016-10-18] MEDS: LORAZEPAM 2 MG/1 ML VIAL IV PRN ×3 (02:46→19:48)
[2016-10-18 05:00] VITALS: BP 130/96
[2016-10-18] MEDS: MELOXICAM 7.5 MG TABLET GT SCH (08:04)
[2016-10-18] MEDS: DULOXETINE 60 MG CAPSULE.DR PO SCH (08:04)
[2016-10-18] MEDS: OXYBUTYNIN CHLORIDE 5 MG TABLET GT SCH ×2 (08:04→16:39)
[2016-10-18] MEDS: VALPROIC ACID 250 MG/5 ML LIQUID UDC GT SCH ×2 (08:04→20:01)
[2016-10-18] MEDS: ASPIRIN 81 MG TAB.CHEW GT SCH (08:04)
[2016-10-18] MEDS: METOPROLOL TARTRATE 50 MG TABLET GT SCH ×2 (08:05→20:21)
[2016-10-18] MEDS: QUETIAPINE FUMARATE 25 MG TABLET GT SCH ×4 (08:05→20:01)
[2016-10-18] MEDS: CLOTRIMAZOLE 1% CREAM 30 GM TUBE TOP SCH ×2 (08:06→21:00)
[2016-10-18] MEDS: LEVOTHYROXINE SODIUM 75 MCG TABLET GT SCH (08:06)
[2016-10-18] MEDS: Z GUARD REMEDY PASTE 57 GM TUBE TOP SCH ×2 (08:07→21:00)
[2016-10-18 11:28] VITALS: BP 133/45
[2016-10-18 15:08] VITALS: BP 119/69
[2016-10-18] MEDS: DONEPEZIL 10 MG TABLET GT SCH (17:01)
[2016-10-18 19:00] VITALS: BP 124/69
[2016-10-18] MEDS: CEFTRIAXONE 1 G in IV DEXTROSE 5% 50 ML IV SCH (20:22)
[2016-10-19] MEDS: LORAZEPAM 2 MG/1 ML VIAL IV PRN (05:09)
[2016-10-19 05:22] VITALS: BP 140/70
[2016-10-19] MEDS: METOPROLOL TARTRATE 50 MG TABLET GT SCH ×2 (08:01→21:00)
[2016-10-19] MEDS: DULOXETINE 60 MG CAPSULE.DR PO SCH (08:01)
[2016-10-19] MEDS: CLOTRIMAZOLE 1% CREAM 30 GM TUBE TOP SCH ×2 (08:01→21:04)
[2016-10-19] MEDS: MELOXICAM 7.5 MG TABLET GT SCH (08:01)
[2016-10-19] MEDS: OXYBUTYNIN CHLORIDE 5 MG TABLET GT SCH ×2 (08:01→16:27)
[2016-10-19] MEDS: VALPROIC ACID 250 MG/5 ML LIQUID UDC GT SCH ×2 (08:01→20:59)
[2016-10-19] MEDS: LEVOTHYROXINE SODIUM 75 MCG TABLET GT SCH (08:01)
[2016-10-19] MEDS: ASPIRIN 81 MG TAB.CHEW GT SCH (08:01)
[2016-10-19] MEDS: QUETIAPINE FUMARATE 25 MG TABLET GT SCH ×4 (08:01→20:59)
[2016-10-19] MEDS: Z GUARD REMEDY PASTE 57 GM TUBE TOP SCH ×2 (08:02→21:05)
--- NOTE | 2016-10-19 08:15 | NUR ---
RECEIVED PATIENT UP ON THE DANNY/CHAIR WITH GT FEEDINGS IN PROGRESS ORDERED WITH NO S/S OF ASPIRATION AT THIS TIME PATIENT IS CONFUSED AND DISORIENTED REQUIRING MAX ASSIST FOR ALL ADL REMAIN ON ONE ON ONE SITTER FOR SAFETY MADE COMFORTABLE
--- NOTE | 2016-10-19 10:21 | NUR ---
PATIENT SEEN AND EXAMINED BY TODD SAP BASIS ADMINISTRATOR WITH NEW ORDERS AND NOTED
[2016-10-19 11:13] VITALS: BP 113/73
[2016-10-19 12:22] LABS: BASOPHILS # (AUTO) 0.1 K/uL (0.0-0.2); BASOPHILS % (AUTO) 0.8 % (0.0-2.0); EOSINOPHILS # (AUTO) 0.2 K/uL (0.0-0.7); EOSINOPHILS % (AUTO) 1.8 % (0.0-7.0); HEMATOCRIT 38.3 % (37.0-47.0); HEMOGLOBIN 13.1 g/dL (12.0-16.0); LYMPHOCYTES # (AUTO) 1.5 K/uL (0.8-4.8); LYMPHOCYTES % (AUTO) 12.9 % (20.5-51.5); MEAN CORPUSCULAR HEMOGLOBIN 33.7 uug (27.0-31.0); MEAN CORPUSCULAR HGB CONC 34 g/dL (32.0-37.0); MONOCYTES # (AUTO) 0.7 K/uL (0.1-1.30); MONOCYTES % (AUTO) 5.6 % (0.0-11.0); NEUTROPHILS # (AUTO) 9.4 K/uL (1.8-8.9); NEUTROPHILS % (AUTO) 78.9 % (38.5-71.5); PLATELET COUNT (AUTO) 246 K/uL (150-450); RED CELL DISTRIBUTION WIDTH 13.2 % (11.5-14.5); WHITE BLOOD COUNT (AUTO) 11.9 K/uL (4.0-11.2)
[2016-10-19 12:41] LABS: ALBUMIN 3.3 g/dL (3.4-5.0); BILIRUBIN,TOTAL 0.7 mg/dL (0.2-1.0); CALCIUM 8.9 mg/dL (8.5-10.1); CREATININE 0.8 mg/dL (0.6-1.3); MAGNESIUM 2.1 mg/dL (1.8-2.4); PHOSPHOROUS 3.5 mg/dL (2.5-4.9); POTASSIUM 4.2 mmol/L (3.5-5.1); TOTAL PROTEIN, SERUM 6.8 g/dL (6.4-8.2)
[2016-10-19 15:16] VITALS: BP 110/55
[2016-10-19] MEDS: DONEPEZIL 10 MG TABLET GT SCH (17:14)
[2016-10-19] MEDS: FIBERSOURCE HN 1000ML LIQUID GT PRN (17:28)
--- NOTE | 2016-10-19 18:00 | NUR ---
TOLERATING GT FEEDINGS ORDERED WITH NO GASTRIC RESIDUAL AT THIS TIME.
--- NOTE | 2016-10-19 19:30 | NUR ---
PATIENT AWAKE, CONT ON 1;1 SITTING FOR SAFETY, NO SOB, NO CHEST PAIN NOTED, KEPT CLEAN DRY AND COMFORTABLE, QUINONES CATH PATENT, DRAINING WITH MODERAT AMT YELLOW URINE, NO DISTRESS.
[2016-10-19 20:00] VITALS: BP 102/65
[2016-10-20] MEDS: LORAZEPAM 2 MG/1 ML VIAL IV PRN ×3 (02:23→15:44)
[2016-10-20 04:00] VITALS: BP 132/79
--- NOTE | 2016-10-20 05:14 | NUR ---
PATIENT AWAKE WITH CONFUSION DUE TO HEALTH CONDITION, WITH EPISODE OF RESTLESS AND AGITATION, GIVEN ATIVAN ORDERED WITH HELP, TURN AND REPOSITION, GTF TOLERATE WELL, NO RESIDUAL, NO DIARREA, NO N/V VOMITTING, NO CHEST PAIN NOTED,
[2016-10-20] MEDS: ACETAMINOPHEN 650 MG/20.3 ML LIQUID UDC GT PRN (06:58)
[2016-10-20 07:16] LABS: ALBUMIN 3.7 g/dL (3.4-5.0); BILIRUBIN,TOTAL 0.9 mg/dL (0.2-1.0); CALCIUM 9.4 mg/dL (8.5-10.1); CREATININE 0.7 mg/dL (0.6-1.3); MAGNESIUM 2.2 mg/dL (1.8-2.4); PHOSPHOROUS 3.7 mg/dL (2.5-4.9); TOTAL PROTEIN, SERUM 7.7 g/dL (6.4-8.2)
[2016-10-20 07:27] LABS: BASOPHILS # (AUTO) 0.1 K/uL (0.0-0.2); BASOPHILS % (AUTO) 0.6 % (0.0-2.0); EOSINOPHILS # (AUTO) 0.4 K/uL (0.0-0.7); EOSINOPHILS % (AUTO) 2.6 % (0.0-7.0); HEMOGLOBIN 14.7 g/dL (12.0-16.0); LYMPHOCYTES # (AUTO) 1.7 K/uL (0.8-4.8); LYMPHOCYTES % (AUTO) 11.5 % (20.5-51.5); MEAN CORPUSCULAR HEMOGLOBIN 33.3 uug (27.0-31.0); MEAN CORPUSCULAR HGB CONC 34 g/dL (32.0-37.0); MONOCYTES # (AUTO) 0.8 K/uL (0.1-1.30); MONOCYTES % (AUTO) 5.6 % (0.0-11.0); NEUTROPHILS # (AUTO) 11.8 K/uL (1.8-8.9); NEUTROPHILS % (AUTO) 79.7 % (38.5-71.5); PLATELET COUNT (AUTO) 194 K/uL (150-450); RED CELL DISTRIBUTION WIDTH 12.9 % (11.5-14.5); WHITE BLOOD COUNT (AUTO) 14.8 K/uL (4.0-11.2)
[2016-10-20 07:36] LABS: HEMATOCRIT 43.6 % (37.0-47.0); RED BLOOD CELL COUNT(AUTO) 4.41 MIL/uL (4.20-5.40)
--- NOTE | 2016-10-20 07:57 | NUR ---
RECEIVED PATIENT IN BED AWAKE NON VERBAL CONFUSED AND DISORIENTED AND AGITATED AND RESTLESS PATIENT WAS MEDICATED ALREADY BY THE NOC RN AND SHE HAS A ONE ON ONE SITTER AT HER BEDSIDE ASSISTING AND MAKING SURE THAT PATIENT IS SAFE AND NOT PULLING OUT HER GT.GT FEEDING IS ON HOLD AT THIS TIME.WILL CONTINUE TO OBSERVE.
[2016-10-20] MEDS: ASPIRIN 81 MG TAB.CHEW GT SCH (08:37)
[2016-10-20] MEDS: VALPROIC ACID 250 MG/5 ML LIQUID UDC GT SCH ×2 (08:37→20:50)
[2016-10-20] MEDS: MELOXICAM 7.5 MG TABLET GT SCH (08:37)
[2016-10-20] MEDS: DULOXETINE 60 MG CAPSULE.DR PO SCH (08:37)
[2016-10-20] MEDS: QUETIAPINE FUMARATE 25 MG TABLET GT SCH ×4 (08:38→20:45)
[2016-10-20] MEDS: LEVOTHYROXINE SODIUM 75 MCG TABLET GT SCH (08:38)
[2016-10-20] MEDS: OXYBUTYNIN CHLORIDE 5 MG TABLET GT SCH ×2 (08:38→16:13)
[2016-10-20] MEDS: METOPROLOL TARTRATE 50 MG TABLET GT SCH ×2 (08:38→20:49)
[2016-10-20] MEDS: Z GUARD REMEDY PASTE 57 GM TUBE TOP SCH ×2 (08:40→20:56)
[2016-10-20] MEDS: CLOTRIMAZOLE 1% CREAM 30 GM TUBE TOP SCH ×2 (08:41→20:56)
[2016-10-20] MEDS: VANCOMYCIN IV 750 MG in IV DEXTROSE 5% 250 ML IV SCH (09:06)
[2016-10-20 10:48] VITALS: BP 130/64
[2016-10-20 10:59] LABS: *BILIRUBIN,URIN NEGATIVE (NEGATIVE); *BLOOD, URINE 3+ (NEGATIVE); *CLARITY,URINE CLOUDY (CLEAR); *COLOR,URINE YELLOW (YELLOW); *KETONES,URINE NEGATIVE (NEGATIVE); *PROTEIN,URINE 1+ (NEGATIVE); LEUKOCYTE ESTERASE ,URINE 1+ (NEGATIVE); NITRITE, URINE NEGATIVE (NEGATIVE); PH,URINE 8.5 (5.0-8.0); UGLUCOSE NEGATIVE (NEGATIVE)
[2016-10-20 11:20] LABS: BACTERIA,URINE NONE SEEN /HPF (NONE SEEN); MUCUS,URINE FEW /LPF (0-FEW); RBC,URINE TNTC /HPF (0-3); SQUAMOUS EPITHELIAL CELL,UR FEW /HPF (NONE SEEN); URINE AMORPHOUS PHOSPHATES FEW /HPF
--- NOTE | 2016-10-20 14:00 | NUR ---
PATIENT CONTINUES TO HAVE EPISODES OF BEING AGITATED AND RESTLESS WITH ONE ON ONE SITTER AT BEDSIDE FOR SAFETY.REMAIN ON GT FEEDINGS ORDERED AND CONTINUES TO TOLERATED WITH NO GASTRIC RESIDUAL AT THIS TIME.REMAIN ON IV ANTIBIOTICS ORDERED WITH NO ADVERSE OR ALLERGIC REACTIONS AT THIS TIME. WILL CONTINUE TO OBSERVE.
--- NOTE | 2016-10-20 15:23 | NUR ---
Clinical pharmacy note-Vancomycin dosing per pharmacy Subjective: To start Vancomycin dosing on this 71 year old patient for UTI(Staph haemolyticus resistant to oxacillin and Bactrim) Objective: BUN 26 Scr 0.7 WBC 14.8 Temp 97.6 Ht 5'2" Wt 105 lbs Assessment/Plan: Will start Vancomycin 750mg IV every 23 hrs(first dose given today at 0906)and draw trough by 4th dose(not ordered yet) for expected trough around 14. Will monitor renal function closely to adjust the dose if needed. Will follow daily.
--- NOTE | 2016-10-20 16:13 | NUR ---
Faxed the following facilities. Awaiting responses: 1.[facility] [phone] 2.[facility] [phone] 3.[facility] [phone] 4.[facility] [phone] 5.[facility] [phone] 6.[facility] [phone] 7.[facility] [phone] 8.[facility] [phone] 9.[facility] [phone] 10.[facility] [phone] 11.[facility] [phone]
[2016-10-20] MEDS: FIBERSOURCE HN 1000ML LIQUID GT PRN (16:43)
[2016-10-20] MEDS: DONEPEZIL 10 MG TABLET GT SCH (17:06)
--- NOTE | 2016-10-20 18:00 | NUR ---
RESTING IN BED DOZING ON AND OFF WITH SITTER AT HER BEDSIDE FOR SAFETY.REMAIN ON GT FEEDINGS ORDERED WITH NO ADVBERSE OR ALLERGIC REACTIONS AT THIS TIME.MADE COMFORTABLE.WILL CONTINUE TO OBSERVE.
--- NOTE | 2016-10-20 19:30 | NUR ---
PATIENT IN BED, SLEEP ON AND OFF, TURN AND REPOSITION EVERY TWO HOURS, KEPT CLEAN AND DRY, QUINONES CATH PATENT DRAINING WITH SOPHIE COLOR URINE IN MODERATE AMOUNT, NO S/S OF PAIN AT THIS TIME. CONT TO MONITOR.
[2016-10-20 20:00] VITALS: BP 119/80
[2016-10-20] MEDS: NITROFURANTOIN/NITROFURAN MAC 100 MG CAPSULE PO SCH (20:45)
[2016-10-21 04:00] VITALS: BP 131/72
[2016-10-21] MEDS: LORAZEPAM 2 MG/1 ML VIAL IV PRN ×2 (06:09→16:12)
--- NOTE | 2016-10-21 06:24 | NUR ---
PATIENT SLEPT MOST OF THE NIGHT, BUT SHE START BEING RESTLESS, CHECK DIAPER IF PATIENT SOILED, AND ASSESS FOR PAIN AND DISCOMFORT, PATIENT IS DRY AND CLEAN, AGITATED TRYING TO KICK HER SITTER, CLIMBS OOB, GIVEN ATIVAN ORDER, WITH HELP.
[2016-10-21 08:36] LABS: BASOPHILS # (AUTO) 0.3 K/uL (0.0-0.2); EOSINOPHILS # (AUTO) 0.5 K/uL (0.0-0.7); EOSINOPHILS % (AUTO) 2.9 % (0.0-7.0); HEMOGLOBIN 13.4 g/dL (12.0-16.0); LYMPHOCYTES # (AUTO) 1.9 K/uL (0.8-4.8); LYMPHOCYTES % (AUTO) 11.5 % (20.5-51.5); MEAN CORPUSCULAR HEMOGLOBIN 33.3 uug (27.0-31.0); MEAN CORPUSCULAR HGB CONC 35 g/dL (32.0-37.0); MEAN CORPUSCULAR VOLUME 96.5 fL (81.0-99.0); MONOCYTES % (AUTO) 6.4 % (0.0-11.0); NEUTROPHILS # (AUTO) 12.6 K/uL (1.8-8.9); NEUTROPHILS % (AUTO) 77.2 % (38.5-71.5); PLATELET COUNT (AUTO) 167 K/uL (150-450); RED BLOOD CELL COUNT(AUTO) 4.04 MIL/uL (4.20-5.40); RED CELL DISTRIBUTION WIDTH 13.1 % (11.5-14.5); WHITE BLOOD COUNT (AUTO) 16.3 K/uL (4.0-11.2)
[2016-10-21] MEDS: VANCOMYCIN IV 750 MG in IV DEXTROSE 5% 250 ML IV SCH (08:59)
[2016-10-21] MEDS: MELOXICAM 7.5 MG TABLET GT SCH (09:00)
[2016-10-21] MEDS: QUETIAPINE FUMARATE 25 MG TABLET GT SCH ×4 (09:00→22:16)
[2016-10-21] MEDS: VALPROIC ACID 250 MG/5 ML LIQUID UDC GT SCH ×2 (09:00→22:16)
--- NOTE | 2016-10-21 09:00 | NUR ---
RECEIVED PATIENT IN BED CONFUSED AND DISORIENTED AGITATED AND RESTLESS WITH LEGS HANGING OVER THE SIDE RAILS WITH HER SITTER ATTEMPTING TO REPOSITION AND CARE FOR HER.PATIENT IS COMBATIVE PINCHING AND GRABBING HER CAREGIVER PATIENT IS CONSTANTLY NEEDING REDIRECTION.DUE AM MEDICATIONS GIVEN AND WILL CONTINUE TO OBSERVE AND PROVIDE SAFE AND THERAPEUTIC ENVIRONMENT.
[2016-10-21] MEDS: NITROFURANTOIN/NITROFURAN MAC 100 MG CAPSULE PO SCH ×2 (09:01→22:16)
[2016-10-21] MEDS: DULOXETINE 60 MG CAPSULE.DR PO SCH (09:01)
[2016-10-21] MEDS: ASPIRIN 81 MG TAB.CHEW GT SCH (09:01)
[2016-10-21] MEDS: LEVOTHYROXINE SODIUM 75 MCG TABLET GT SCH (09:01)
[2016-10-21] MEDS: METOPROLOL TARTRATE 50 MG TABLET GT SCH ×2 (09:02→21:00)
[2016-10-21] MEDS: CLOTRIMAZOLE 1% CREAM 30 GM TUBE TOP SCH ×2 (09:10→21:00)
[2016-10-21] MEDS: OXYBUTYNIN CHLORIDE 5 MG TABLET GT SCH ×3 (09:11→22:16)
[2016-10-21] MEDS: Z GUARD REMEDY PASTE 57 GM TUBE TOP SCH ×2 (09:13→21:00)
[2016-10-21 09:20] LABS: ALBUMIN 3.3 g/dL (3.4-5.0); CALCIUM 8.4 mg/dL (8.5-10.1); CREATININE 0.7 mg/dL (0.6-1.3); MAGNESIUM 2.1 mg/dL (1.8-2.4); PHOSPHOROUS 3.8 mg/dL (2.5-4.9); POTASSIUM 4.9 mmol/L (3.5-5.1); TOTAL PROTEIN, SERUM 6.8 g/dL (6.4-8.2)
[2016-10-21 11:00] VITALS: BP 118/86
[2016-10-21] MEDS: METRONIDAZOLE 500 MG TABLET GT SCH ×2 (13:37→22:16)
--- NOTE | 2016-10-21 14:53 | NUR ---
PATIENT CONTINUES TO BE AGITATED AND RESTLESS SLEEPS ON AND OFF MEDICATIONS GIVEN ORDERED SITTER OBSERVATION REMAINS IN PROGRESS WILL CONTINUE TO OBSERVE.
--- NOTE | 2016-10-21 15:37 | NUR ---
Clinical pharmacy note-Vancomycin dosing per pharmacy Subjective: To continue Vancomycin dosing on this 71 year old patient for UTI(Staph haemolyticus resistant to oxacillin and Bactrim) Objective: BUN 27 Scr 0.7 WBC 16.3 Temp 98.6 Ht 5'2" Wt 105 lbs Assessment/Plan: Will continue Vancomycin 750mg IV every 23 hrs(second dose given today at 0959)and draw trough by 4th dose(not ordered yet) for expected trough around 14. Will monitor renal function closely to adjust the dose if needed. Will follow daily.
[2016-10-21 16:00] VITALS: BP 118/68
[2016-10-21] MEDS: DONEPEZIL 10 MG TABLET GT SCH (17:07)
--- NOTE | 2016-10-21 17:43 | NUR ---
MEDICATIONS ORDERED AND PATIENT REMAIN ON SITTER OBSERVATION FOR SAFETY AT RISK FOR INJURIES RELATED TO POOR SAFETY AWARENESS.WILL CONTINUE TO PROVIDE SAFE AND THERAPEUTIC ENVIRONMENT AT ALL TIMES.
[2016-10-21 20:00] VITALS: BP 116/75
[2016-10-22] MEDS: LORAZEPAM 2 MG/1 ML VIAL IV PRN ×2 (00:17→21:25)
[2016-10-22 05:35] VITALS: BP 125/55
[2016-10-22] MEDS: METRONIDAZOLE 500 MG TABLET GT SCH ×3 (07:11→21:23)
--- NOTE | 2016-10-22 07:44 | NUR ---
pt continue to be restless overnight,given x1 ativan, slept intermittently, gt feeding stopped @ 0600 , tolerating feeding without residual. sitter at bedside for safety.will continue to monitor, vss,afebrile.
--- NOTE | 2016-10-22 08:00 | NUR ---
Received Awake and lying sideways on the bed with feet hanging over the side onto table with sitter at bedside at this time. SL patent and restarted G-Tube feeding as per orders tolerated well no residuals noted at this time.
[2016-10-22] MEDS: METOPROLOL TARTRATE 50 MG TABLET GT SCH ×2 (10:00→21:24)
[2016-10-22] MEDS: DULOXETINE 60 MG CAPSULE.DR PO SCH (10:00)
[2016-10-22] MEDS: ASPIRIN 81 MG TAB.CHEW GT SCH (10:00)
[2016-10-22] MEDS: VALPROIC ACID 250 MG/5 ML LIQUID UDC GT SCH ×2 (10:00→21:22)
[2016-10-22] MEDS: MELOXICAM 7.5 MG TABLET GT SCH (10:00)
[2016-10-22] MEDS: LEVOTHYROXINE SODIUM 75 MCG TABLET GT SCH (10:00)
[2016-10-22] MEDS: NITROFURANTOIN/NITROFURAN MAC 100 MG CAPSULE PO SCH ×2 (10:00→21:23)
[2016-10-22] MEDS: CLOTRIMAZOLE 1% CREAM 30 GM TUBE TOP SCH ×2 (10:00→21:24)
[2016-10-22] MEDS: QUETIAPINE FUMARATE 25 MG TABLET GT SCH ×4 (10:00→21:23)
[2016-10-22] MEDS: Z GUARD REMEDY PASTE 57 GM TUBE TOP SCH ×2 (10:00→21:00)
[2016-10-22 11:15] VITALS: BP 128/90
[2016-10-22] MEDS: DONEPEZIL 10 MG TABLET GT SCH (17:25)
[2016-10-22] MEDS: OXYBUTYNIN CHLORIDE 5 MG TABLET GT SCH (17:25)
[2016-10-22 20:35] VITALS: BP 112/76
[2016-10-23] MEDS: LORAZEPAM 2 MG/1 ML VIAL IV PRN ×2 (03:37→13:00)
[2016-10-23 05:05] VITALS: BP 134/83
[2016-10-23] MEDS: METRONIDAZOLE 500 MG TABLET GT SCH ×3 (06:32→21:31)
[2016-10-23 06:39] LABS: BASOPHILS # (AUTO) 0.1 K/uL (0.0-0.2); BASOPHILS % (AUTO) 0.7 % (0.0-2.0); EOSINOPHILS # (AUTO) 0.4 K/uL (0.0-0.7); EOSINOPHILS % (AUTO) 2.7 % (0.0-7.0); HEMATOCRIT 36.2 % (37.0-47.0); HEMOGLOBIN 12.5 g/dL (12.0-16.0); LYMPHOCYTES # (AUTO) 1.5 K/uL (0.8-4.8); MEAN CORPUSCULAR HGB CONC 35 g/dL (32.0-37.0); MONOCYTES # (AUTO) 1.2 K/uL (0.1-1.30); NEUTROPHILS # (AUTO) 11.5 K/uL (1.8-8.9); NEUTROPHILS % (AUTO) 78.6 % (38.5-71.5); PLATELET COUNT (AUTO) 171 K/uL (150-450); RED BLOOD CELL COUNT(AUTO) 3.69 MIL/uL (4.20-5.40); WHITE BLOOD COUNT (AUTO) 14.7 K/uL (4.0-11.2)
[2016-10-23 07:12] LABS: CALCIUM 8.9 mg/dL (8.5-10.1); CREATININE 0.7 mg/dL (0.6-1.3); MAGNESIUM 2.1 mg/dL (1.8-2.4); POTASSIUM 3.3 mmol/L (3.5-5.1)
[2016-10-23 08:00] VITALS: BP 123/70
--- NOTE | 2016-10-23 08:00 | NUR ---
Awake, confused, bed bath given by 1:1 sitter
[2016-10-23] MEDS: ASPIRIN 81 MG TAB.CHEW GT SCH (08:31)
[2016-10-23] MEDS: OXYBUTYNIN CHLORIDE 5 MG TABLET GT SCH ×2 (08:31→17:01)
[2016-10-23] MEDS: VALPROIC ACID 250 MG/5 ML LIQUID UDC GT SCH ×2 (08:31→20:46)
[2016-10-23] MEDS: MELOXICAM 7.5 MG TABLET GT SCH (08:32)
[2016-10-23] MEDS: METOPROLOL TARTRATE 50 MG TABLET GT SCH ×2 (08:32→20:46)
[2016-10-23] MEDS: QUETIAPINE FUMARATE 25 MG TABLET GT SCH ×4 (08:32→20:46)
[2016-10-23] MEDS: CLOTRIMAZOLE 1% CREAM 30 GM TUBE TOP SCH ×2 (08:33→20:47)
[2016-10-23] MEDS: DULOXETINE 60 MG CAPSULE.DR PO SCH (08:33)
[2016-10-23] MEDS: NITROFURANTOIN/NITROFURAN MAC 100 MG CAPSULE PO SCH ×2 (08:33→20:45)
[2016-10-23] MEDS: LEVOTHYROXINE SODIUM 75 MCG TABLET GT SCH (08:33)
[2016-10-23] MEDS: Z GUARD REMEDY PASTE 57 GM TUBE TOP SCH ×2 (08:34→20:47)
[2016-10-23] MEDS: FIBERSOURCE HN 1000ML LIQUID GT PRN (08:50)
--- NOTE | 2016-10-23 10:00 | NUR ---
Noted dry mouth, oral care done. Repositioned comfortably
[2016-10-23] MEDS ORDERED: POTASSIUM CHLORIDE 20 MEQ POWDER PACKET GT ONE (11:15)
[2016-10-23 12:00] VITALS: BP 126/92
--- NOTE | 2016-10-23 13:28 | NUR ---
Restless, fidgety. Ativan given as ordered.
[2016-10-23 15:57] VITALS: BP 112/69
[2016-10-23] MEDS: DONEPEZIL 10 MG TABLET GT SCH (17:00)
--- NOTE | 2016-10-23 17:41 | NUR ---
Tolerating tube feeding. Ora care done at interval. Repositioned comfortably.
[2016-10-23 20:00] VITALS: BP 119/72
[2016-10-24] MEDS: LORAZEPAM 2 MG/1 ML VIAL IV PRN ×4 (02:07→22:42)
[2016-10-24 04:00] VITALS: BP 120/91
[2016-10-24] MEDS: METRONIDAZOLE 500 MG TABLET GT SCH ×3 (05:44→22:06)
--- NOTE | 2016-10-24 07:25 | NUR ---
Confused, restless and agitated, attempting to get out of bed. GT feedings off. 1:1 sitter at bedside
[2016-10-24] MEDS: VALPROIC ACID 250 MG/5 ML LIQUID UDC GT SCH ×2 (08:03→20:53)
[2016-10-24] MEDS: ASPIRIN 81 MG TAB.CHEW GT SCH (08:03)
[2016-10-24] MEDS: OXYBUTYNIN CHLORIDE 5 MG TABLET GT SCH ×2 (08:04→17:12)
[2016-10-24] MEDS: MELOXICAM 7.5 MG TABLET GT SCH (08:05)
[2016-10-24] MEDS: QUETIAPINE FUMARATE 25 MG TABLET GT SCH ×4 (08:05→20:54)
[2016-10-24] MEDS: NITROFURANTOIN/NITROFURAN MAC 100 MG CAPSULE PO SCH ×2 (08:05→20:54)
[2016-10-24] MEDS: LEVOTHYROXINE SODIUM 75 MCG TABLET GT SCH (08:05)
[2016-10-24] MEDS: DULOXETINE 60 MG CAPSULE.DR PO SCH (08:05)
[2016-10-24] MEDS: CLOTRIMAZOLE 1% CREAM 30 GM TUBE TOP SCH ×2 (08:06→21:05)
[2016-10-24] MEDS: Z GUARD REMEDY PASTE 57 GM TUBE TOP SCH ×2 (08:07→21:03)
[2016-10-24] MEDS: METOPROLOL TARTRATE 50 MG TABLET GT SCH ×2 (08:12→20:54)
[2016-10-24] MEDS: ACETAMINOPHEN 650 MG/20.3 ML LIQUID UDC GT PRN (09:16)
--- NOTE | 2016-10-24 11:00 | NUR ---
Multiple loose stools. Dr. Yost informed with orders for stool C diff, sent to lab.
--- NOTE | 2016-10-24 12:52 | NUR ---
1) [facility] - - - No beds available 2) [facility] - - [phone] - Maximino stated they can not accommodate her behavior 3) [facility] - - - Left a message to call back - Martha called back and they are not contracted with the insurance 4) [facility] - - - Tawanda stated they are full 5) [facility] - - - Nikky stated they can not admit the patient 6) [facility] - - - Tammi stated their DON and web operations administrator declined admission 7) [facility] - - - Rocio requested to refax the patient's information 8) [facility] - - - Cordell stated they are not able to accommodate her 9) [facility] - - - Max stated they can not admit the patient 10) [facility] - - - Blanche stated that they are not able to admit the patient because they do not have a contract with [place] 13:08 Dean [ ] from [facility] called back and he stated that they do not have any SNF admitting the patient as of now. He will continue to try to look for a SNF.
--- NOTE | 2016-10-24 13:30 | NUR ---
Saline lock infiltrated. Reinserted to left forearm g 22. Ativan given as ordered.
--- NOTE | 2016-10-24 15:00 | NUR ---
Calm and Sleeping
[2016-10-24 16:00] VITALS: BP 129/69
[2016-10-24] MEDS: DONEPEZIL 10 MG TABLET GT SCH (17:12)
--- NOTE | 2016-10-24 17:50 | NUR ---
Tolerated G tube feeding, no significant residual. Repositioned comfortably. 1:1 sitter at bedside
[2016-10-24 20:00] VITALS: BP 116/58
--- NOTE | 2016-10-24 20:33 | NUR ---
pt continues resting...appears calm at this time. g-tube remains intact...no residuals noted...tube patent and flushes w/o difficulty hob up at approx 30 degrees for aspiration precautions 1:1 sitter continues at bedside.
[2016-10-25] MEDS: METRONIDAZOLE 500 MG TABLET GT SCH ×3 (06:40→21:53)
[2016-10-25 07:05] LABS: ALBUMIN 3.4 g/dL (3.4-5.0); CALCIUM 9.1 mg/dL (8.5-10.1); CREATININE 0.8 mg/dL (0.6-1.3); MAGNESIUM 2.2 mg/dL (1.8-2.4); PHOSPHOROUS 3.8 mg/dL (2.5-4.9); POTASSIUM 3.8 mmol/L (3.5-5.1); TOTAL PROTEIN, SERUM 7.1 g/dL (6.4-8.2)
[2016-10-25 07:19] LABS: HEMATOCRIT 43.5 % (37.0-47.0); HEMOGLOBIN 13.9 g/dL (12.0-16.0); MEAN CORPUSCULAR HEMOGLOBIN 31.8 uug (27.0-31.0); MEAN CORPUSCULAR HGB CONC 32 g/dL (32.0-37.0); MEAN CORPUSCULAR VOLUME 99.7 fL (81.0-99.0); PLATELET COUNT (AUTO) 166 K/uL (150-450); RED BLOOD CELL COUNT(AUTO) 4.36 MIL/uL (4.20-5.40); RED CELL DISTRIBUTION WIDTH 13.5 % (11.5-14.5); WHITE BLOOD COUNT (AUTO) 8.8 K/uL (4.0-11.2)
[2016-10-25] MEDS: LORAZEPAM 2 MG/1 ML VIAL IV PRN (07:46)
[2016-10-25] MEDS: LEVOTHYROXINE SODIUM 75 MCG TABLET GT SCH (08:09)
[2016-10-25] MEDS: VALPROIC ACID 250 MG/5 ML LIQUID UDC GT SCH ×2 (08:09→20:15)
[2016-10-25] MEDS: NITROFURANTOIN/NITROFURAN MAC 100 MG CAPSULE PO SCH ×2 (08:09→20:14)
[2016-10-25] MEDS: ASPIRIN 81 MG TAB.CHEW GT SCH (08:09)
[2016-10-25] MEDS: MELOXICAM 7.5 MG TABLET GT SCH (08:09)
[2016-10-25] MEDS: DULOXETINE 60 MG CAPSULE.DR PO SCH (08:09)
[2016-10-25] MEDS: OXYBUTYNIN CHLORIDE 5 MG TABLET GT SCH ×2 (08:09→16:13)
[2016-10-25] MEDS: QUETIAPINE FUMARATE 25 MG TABLET GT SCH ×4 (08:09→20:14)
[2016-10-25] MEDS: Z GUARD REMEDY PASTE 57 GM TUBE TOP SCH ×2 (08:10→20:17)
[2016-10-25] MEDS: METOPROLOL TARTRATE 50 MG TABLET GT SCH ×2 (08:10→20:16)
[2016-10-25] MEDS: CLOTRIMAZOLE 1% CREAM 30 GM TUBE TOP SCH ×2 (08:10→20:17)
[2016-10-25] MEDS: FIBERSOURCE HN 1000ML LIQUID GT PRN (08:23)
[2016-10-25 10:01] VITALS: BP 127/84
[2016-10-25 11:17] LABS: BASOPHILS % (AUTO) 0.9 % (0.0-2.0); EOSINOPHILS % (AUTO) 6.1 % (0.0-7.0); MONOCYTES % (AUTO) 10.8 % (0.0-11.0); NEUTROPHILS % (AUTO) 59.2 % (38.5-71.5)
[2016-10-25 15:50] VITALS: BP 128/91
[2016-10-25] MEDS: DONEPEZIL 10 MG TABLET GT SCH (17:03)
--- NOTE | 2016-10-25 19:52 | NUR ---
PATIENT LYING ON BED EASILY AROUSING TO VERBAL RESPONSE. NO DISTRESS NOTED. SITTER AT THE BED SIDE FOR SAFETY. GT FEEDING INFUSING ORDERED. KEPT HOB ELEVATED. F/C DRAINING YELLOW URINE. CONTACT ISOLATION FOR POSSIBLE C DIFF OBSERVED. WILL CONTINUE TO MONITOR.
[2016-10-25 20:00] VITALS: BP 132/85
[2016-10-25] MEDS: ACETAMINOPHEN 650 MG/20.3 ML LIQUID UDC GT PRN (21:53)
[2016-10-26] MEDS: LORAZEPAM 2 MG/1 ML VIAL IV PRN ×2 (00:07→10:54)
[2016-10-26] MEDS: METRONIDAZOLE 500 MG TABLET GT SCH ×3 (05:39→21:02)
[2016-10-26] MEDS: FIBERSOURCE HN 1000ML LIQUID GT PRN (05:55)
--- NOTE | 2016-10-26 06:44 | NUR ---
PATIENT WAS AWAKE AND RESTLESS ON BED MOST OF THE TIME. SLEPT FOR ABOUT 2 HRS. GT FEEDING INFUSING ORDERED. KEPT HOB ELEVATED ALL TIMES. ONE SOFT BM DURING THE SHIFT . OBSERVED CONTACT ISOLATION FOR POSSIBLE C DIF. 1:1 SITTER AT THE BED SIDE. SAFETY MEASURES OBSERVED. GT FEEDING OFF AT 6 AM AND NEEDS TO BE ON AT 8 AM. QUINONES CATHETER DRAINING DARK YELLOW URINE. CONTINUING ON PO ATB ORDERED.
[2016-10-26 07:09] VITALS: BP 121/68
[2016-10-26 07:40] LABS: HEMATOCRIT 40.7 % (37.0-47.0); HEMOGLOBIN 13.5 g/dL (12.0-16.0); MEAN CORPUSCULAR HEMOGLOBIN 33.2 uug (27.0-31.0); MEAN CORPUSCULAR HGB CONC 33 g/dL (32.0-37.0); PLATELET COUNT (AUTO) 133 K/uL (150-450); RED BLOOD CELL COUNT(AUTO) 4.07 MIL/uL (4.20-5.40); RED CELL DISTRIBUTION WIDTH 13.3 % (11.5-14.5); WHITE BLOOD COUNT (AUTO) 8.6 K/uL (4.0-11.2)
[2016-10-26 08:10] LABS: ALBUMIN 3.6 g/dL (3.4-5.0); BILIRUBIN,TOTAL 0.8 mg/dL (0.2-1.0); CALCIUM 9.1 mg/dL (8.5-10.1); CREATININE 0.7 mg/dL (0.6-1.3); MAGNESIUM 2.2 mg/dL (1.8-2.4); PHOSPHOROUS 3.7 mg/dL (2.5-4.9); POTASSIUM 3.6 mmol/L (3.5-5.1); TOTAL PROTEIN, SERUM 7.2 g/dL (6.4-8.2)
[2016-10-26] MEDS: NITROFURANTOIN/NITROFURAN MAC 100 MG CAPSULE PO SCH ×2 (08:49→20:38)
[2016-10-26] MEDS: DULOXETINE 60 MG CAPSULE.DR PO SCH (08:49)
[2016-10-26] MEDS: METOPROLOL TARTRATE 50 MG TABLET GT SCH ×2 (08:49→20:39)
[2016-10-26] MEDS: ASPIRIN 81 MG TAB.CHEW GT SCH (08:49)
[2016-10-26] MEDS: VALPROIC ACID 250 MG/5 ML LIQUID UDC GT SCH ×2 (08:49→20:40)
[2016-10-26] MEDS: LEVOTHYROXINE SODIUM 75 MCG TABLET GT SCH (08:50)
[2016-10-26] MEDS: OXYBUTYNIN CHLORIDE 5 MG TABLET GT SCH ×2 (08:50→17:21)
[2016-10-26] MEDS: CLOTRIMAZOLE 1% CREAM 30 GM TUBE TOP SCH ×2 (08:50→20:40)
[2016-10-26] MEDS: Z GUARD REMEDY PASTE 57 GM TUBE TOP SCH ×2 (08:50→20:40)
[2016-10-26] MEDS: QUETIAPINE FUMARATE 25 MG TABLET GT SCH ×4 (08:50→20:37)
[2016-10-26] MEDS: MELOXICAM 7.5 MG TABLET GT SCH (08:50)
[2016-10-26 11:21] VITALS: BP 129/83
[2016-10-26 12:17] LABS: BASOPHILS % (AUTO) 0.3 % (0.0-2.0); EOSINOPHILS % (AUTO) 3.9 % (0.0-7.0); LYMPHOCYTES % (AUTO) 16.2 % (20.5-51.5); MONOCYTES % (AUTO) 9.2 % (0.0-11.0); NEUTROPHILS % (AUTO) 70.4 % (38.5-71.5)
[2016-10-26 16:00] VITALS: BP 140/81
[2016-10-26] MEDS: DONEPEZIL 10 MG TABLET GT SCH (17:21)
--- NOTE | 2016-10-26 19:46 | NUR ---
PT IS LAYING COMFORTABLY IN BED. NO S/S OF RESPIRATORY DISTRESS NOTED. NO PAIN NOTED. ALL SAFETY NEEDS ARE MET. 1:1 SITTER BY THE BEDSIDE. QUINONES DRAINS TEACOLOR URINE.
--- NOTE | 2016-10-26 20:00 | NUR ---
RECEIVED PT IN BED, RESTING WITH EYES CLOSED, AWAKENS TO NAME AND TOUCH, IN NO ACUTE DISTRESS NOTED. EVEN AND NONLABORED BREATHING OBSERVED, ON ROOM AIR. GT FEEDING PATENT, RUNNING AT 60CC/HR, NO RESIDUAL AT THIS TIME. F/C IN PLACE, PATENT DRAINING SOPHIE COLOR URINE. AIR MATTRESS IN PLACE. CONTACT ISOLATION OBSERVED, MAINTAINED. 1:1 SITTER AT BEDSIDE FOR SAFETY. ASPIRATION PRECAUTIONS IN PLACE. WILL CONTINUE TO MONITOR.
[2016-10-26 20:06] VITALS: BP 123/75
[2016-10-27] MEDS: FIBERSOURCE HN 1000ML LIQUID GT PRN (03:34)
[2016-10-27] MEDS: METRONIDAZOLE 500 MG TABLET GT SCH ×3 (05:38→21:29)
--- NOTE | 2016-10-27 06:02 | NUR ---
PATIENT IN BED RESTING, SLEPT WELL THROUGHOUT THE NIGHT, IN NO ACUTE DISTRESS. NO BEHAVIORS NOTED. COOPERATIVE WITH CARE. GT FEEDING TOLERATING WELL, NO RESIDUAL, STOPPED AT 6 AM, TO RESTART AT 8 AM, WILL ENDORSE. ALL NEEDS ATTENDED. KEPT CLEAN AND DRY, NO BM PER SHIFT. 1:1 SITTER AT BEDSIDE AT ALL TIMES. SAFETY AND COMFORT PROVIDED.
[2016-10-27 06:08] VITALS: BP 119/73
[2016-10-27 07:34] LABS: HEMATOCRIT 39.4 % (37.0-47.0); MEAN CORPUSCULAR HEMOGLOBIN 32.7 uug (27.0-31.0); MEAN CORPUSCULAR HGB CONC 33 g/dL (32.0-37.0); MEAN CORPUSCULAR VOLUME 99.3 fL (81.0-99.0); PLATELET COUNT (AUTO) 151 K/uL (150-450); RED BLOOD CELL COUNT(AUTO) 3.97 MIL/uL (4.20-5.40); RED CELL DISTRIBUTION WIDTH 13.3 % (11.5-14.5)
[2016-10-27 08:00] VITALS: BP 121/63
[2016-10-27] MEDS: NITROFURANTOIN/NITROFURAN MAC 100 MG CAPSULE PO SCH (08:08)
[2016-10-27] MEDS: VALPROIC ACID 250 MG/5 ML LIQUID UDC GT SCH ×2 (08:08→21:29)
[2016-10-27] MEDS: MELOXICAM 7.5 MG TABLET GT SCH (08:08)
[2016-10-27] MEDS: DULOXETINE 60 MG CAPSULE.DR PO SCH (08:08)
[2016-10-27] MEDS: QUETIAPINE FUMARATE 25 MG TABLET GT SCH ×3 (08:08→16:10)
[2016-10-27] MEDS: LEVOTHYROXINE SODIUM 75 MCG TABLET GT SCH (08:09)
[2016-10-27] MEDS: OXYBUTYNIN CHLORIDE 5 MG TABLET GT SCH ×2 (08:09→16:10)
[2016-10-27] MEDS: METOPROLOL TARTRATE 50 MG TABLET GT SCH ×2 (08:09→21:29)
[2016-10-27] MEDS: ASPIRIN 81 MG TAB.CHEW GT SCH (08:09)
--- NOTE | 2016-10-27 08:10 | NUR ---
RECEIVED PATIENT IN BED AWAKE CONFUSED AND DISORIENTED VERY AGITATED AND RESTLESS.UNABLE TO REDIRECT DUE MEDICATIONS GIVEN THROUGH THE GASTROSTOMY TUBE PATIENT MADE CONFORTABLE.SHE HAS A ONE ON ONE SITTER FOR OBSERVATION.WILL CONTINUE TO OBSERVE.
[2016-10-27 08:16] LABS: ALBUMIN 3.6 g/dL (3.4-5.0); BILIRUBIN,TOTAL 0.8 mg/dL (0.2-1.0); CALCIUM 9.4 mg/dL (8.5-10.1); CREATININE 0.9 mg/dL (0.6-1.3); MAGNESIUM 2.2 mg/dL (1.8-2.4); PHOSPHOROUS 4.3 mg/dL (2.5-4.9); POTASSIUM 4.2 mmol/L (3.5-5.1); TOTAL PROTEIN, SERUM 7.5 g/dL (6.4-8.2)
[2016-10-27] MEDS: CLOTRIMAZOLE 1% CREAM 30 GM TUBE TOP SCH ×2 (08:30→21:30)
[2016-10-27] MEDS: Z GUARD REMEDY PASTE 57 GM TUBE TOP SCH ×2 (08:30→21:30)
[2016-10-27 10:13] LABS: BASOPHILS % (MANUAL) 1 % (0-2); EOSINOPHILS % (MANUAL) 6 % (0-8); LYMPHOCYTES % (MANUAL) 31 % (20-40); MONOCYTES % (MANUAL) 13 % (2-10); NEUTROPHILS % (MANUAL) 49 % (42-75)
[2016-10-27 10:14] LABS: PLATELET ESTIMATE ADEQUATE
--- NOTE | 2016-10-27 10:35 | NUR ---
RECEIVED RESULT FROM [facility] POSITIVE FOR C-DIFFICILE TOXIN IN THE STOOL TODD SOSA AUDITOR/QUALITY NOTIFIED WITH NO NEW ORDERS AT THIS TIME.PATIENT IS ALREADY ON ISOLATION ALL THE CARE GIVERS INSTRUCTED.
--- NOTE | 2016-10-27 11:49 | NUR ---
PATIENT SEEN AND EXAMINED BY DR ARCHIBALD PSYCHIATRIST WITH NEW ORDERS AND NOTED.
[2016-10-27 12:00] VITALS: BP 132/68
[2016-10-27] MEDS: ACETAMINOPHEN 650 MG/20.3 ML LIQUID UDC GT PRN (12:23)
[2016-10-27 16:00] VITALS: BP 126/66
[2016-10-27] MEDS ORDERED: OLANZAPINE 10 MG VIAL IM STA (16:26)
--- NOTE | 2016-10-27 16:28 | NUR ---
UP ON THE DANNY/CHAIR VERY AGITATED AND RESTLESS ATTEMPTING TO GET OUT OF THE CHAIR PULLING ON HER GT UNABLE TO MANAGE OR REDIRECT CALLED AND SPOKE WITH DR ARCHIBALD WITH NEW ORDERS AND NOTED.
[2016-10-27] MEDS ORDERED: LORAZEPAM 2 MG/1 ML VIAL IM ONE (16:30)
--- NOTE | 2016-10-27 18:49 | NUR ---
AWAKE AND WIGGLING HER LEGS WHEN ASKED IF SHE WAS OKAY,SHE SCREAMED AT ME MADE COMFORTABLE AND WILL OBSERVE.
[2016-10-27 19:32] VITALS: BP 110/65
--- NOTE | 2016-10-27 19:45 | NUR ---
PATIENT IN BED RESTING WITH EYES CLOSED, IN NO ACUTE DISTRESS. EVEN AND NONLABORED BREATHING OBSERVED. GT FEEDING RUNNING AT 60CC/HR, TOLERATING WELL, RESIDUAL 5CC. 1:1 SITTER AT BEDSIDE FOR SAFETY. CONTACT ISOLATION MAINTAINED. WILL CONTINUE TO MONITOR.
--- NOTE | 2016-10-27 23:14 | NUR ---
IV SITE LEAKING, REMOVED. UNABLE TO START NEW IV X3 ATTEMPTS, MD ZULETA MADE AWARE, PER MD "NO NEED" FOR IV ACCESS.
[2016-10-28] MEDS: FIBERSOURCE HN 1000ML LIQUID GT PRN ×2 (03:07→22:30)
[2016-10-28 04:45] VITALS: BP 106/64
[2016-10-28] MEDS: METRONIDAZOLE 500 MG TABLET GT SCH ×3 (05:36→21:46)
[2016-10-28] MEDS: LORAZEPAM 1 MG TABLET PO PRN ×3 (05:36→15:24)
--- NOTE | 2016-10-28 05:45 | NUR ---
Patient slept well through the night, in no acute distress. however woke up at this time restless trying to get out of bed, and pulling on tubings, Ativan 1m prn given as ordered via gtube. G-tube patent, pt tolerating gt feeding with no residual. 1:1 sitter at bedside. Safety maintained. will continue monitoring.
[2016-10-28 07:18] LABS: BASOPHILS # (AUTO) 0.1 K/uL (0.0-0.2); BASOPHILS % (AUTO) 1.1 % (0.0-2.0); EOSINOPHILS # (AUTO) 0.5 K/uL (0.0-0.7); EOSINOPHILS % (AUTO) 4.9 % (0.0-7.0); HEMATOCRIT 40.5 % (37.0-47.0); HEMOGLOBIN 13.4 g/dL (12.0-16.0); LYMPHOCYTES # (AUTO) 2.4 K/uL (0.8-4.8); LYMPHOCYTES % (AUTO) 25.5 % (20.5-51.5); MEAN CORPUSCULAR HGB CONC 33 g/dL (32.0-37.0); MEAN CORPUSCULAR VOLUME 99.8 fL (81.0-99.0); MONOCYTES # (AUTO) 0.9 K/uL (0.1-1.30); MONOCYTES % (AUTO) 9.3 % (0.0-11.0); NEUTROPHILS # (AUTO) 5.6 K/uL (1.8-8.9); NEUTROPHILS % (AUTO) 59.2 % (38.5-71.5); PLATELET COUNT (AUTO) 128 K/uL (150-450); RED BLOOD CELL COUNT(AUTO) 4.06 MIL/uL (4.20-5.40); RED CELL DISTRIBUTION WIDTH 13.4 % (11.5-14.5); WHITE BLOOD COUNT (AUTO) 9.5 K/uL (4.0-11.2)
[2016-10-28 07:36] LABS: ALBUMIN 3.2 g/dL (3.4-5.0); BILIRUBIN,TOTAL 0.7 mg/dL (0.2-1.0); CREATININE 0.9 mg/dL (0.6-1.3); MAGNESIUM 2.1 mg/dL (1.8-2.4); PHOSPHOROUS 4.1 mg/dL (2.5-4.9); POTASSIUM 4.2 mmol/L (3.5-5.1); TOTAL PROTEIN, SERUM 6.6 g/dL (6.4-8.2)
[2016-10-28] MEDS: VALPROIC ACID 250 MG/5 ML LIQUID UDC GT SCH ×2 (08:24→21:46)
[2016-10-28] MEDS: LEVOTHYROXINE SODIUM 75 MCG TABLET GT SCH (08:25)
[2016-10-28] MEDS: OXYBUTYNIN CHLORIDE 5 MG TABLET GT SCH ×2 (08:25→16:33)
[2016-10-28] MEDS: MELOXICAM 7.5 MG TABLET GT SCH (08:25)
[2016-10-28] MEDS: ASPIRIN 81 MG TAB.CHEW GT SCH (08:25)
[2016-10-28] MEDS: QUETIAPINE FUMARATE 25 MG TABLET GT SCH ×3 (08:25→16:33)
[2016-10-28] MEDS: METOPROLOL TARTRATE 50 MG TABLET GT SCH ×2 (08:26→21:48)
[2016-10-28] MEDS: CLOTRIMAZOLE 1% CREAM 30 GM TUBE TOP SCH ×2 (08:38→21:47)
[2016-10-28] MEDS: Z GUARD REMEDY PASTE 57 GM TUBE TOP SCH ×2 (08:38→21:47)
--- NOTE | 2016-10-28 10:00 | NUR ---
PATIENT IS STILL AGITATED AND RESTLESS DESPITE THE MEDICATIONS ORDERED SO PATIENT MEDICATED THROUGH THE GT WITH ATIVAN ORDERED AND WILL OBSERVE.SHE HAS A ONE ON ONE SITTER AT HER BEDSIDE FOR SAFETY.WILL CONTINUE TO PROVIDE SAFE AND THERAPEUTIC ENVIRONMENT AT ALL TIMES.GT FEEDINGS REMAIN IN PROGRESS ORDERED AND TOLERATING WELL WITH NO GASTRIC RESIDUAL AT THIS TIME.
[2016-10-28 11:36] VITALS: BP 109/64
[2016-10-28 16:10] VITALS: BP 106/56
--- NOTE | 2016-10-28 18:00 | NUR ---
PATIENT CONTINUES TO REQUIRE ADDITIONAL PSYCHIATRIC MEDICATIONS IN ADDITION THE HER ROUTINE MEDS TO MANAGE HER BEHAVIOR.CONTINUE TO REQUIRE ONE ON ONE OBSERVATION FOR SAFETY.
[2016-10-28 20:00] VITALS: BP 111/66
[2016-10-29] MEDS: METRONIDAZOLE 500 MG TABLET GT SCH ×3 (05:16→21:00)
[2016-10-29 06:00] VITALS: BP 106/74
--- NOTE | 2016-10-29 06:53 | NUR ---
Patient slept well, no acute distress noted. Remains on GT feeding at 60cc/hr, tolerating well, no residual. Gt stopped at 6am to restart at 8am. No s/s of pain or uneasiness observed throughout shift. VSS. Turn/repositioned. Oral care provided. No significant changes per shift. 1:1 sitter at bedside. Safety maintained. Remains on contact isolation. Will endorse plan of care to incoming nurse.
[2016-10-29] MEDS: QUETIAPINE FUMARATE 25 MG TABLET GT SCH ×4 (08:19→20:58)
[2016-10-29] MEDS: LORAZEPAM 1 MG TABLET PO PRN (08:19)
[2016-10-29] MEDS: OXYBUTYNIN CHLORIDE 5 MG TABLET GT SCH ×2 (08:19→17:32)
[2016-10-29] MEDS: VALPROIC ACID 250 MG/5 ML LIQUID UDC GT SCH ×2 (08:19→20:58)
[2016-10-29] MEDS: ASPIRIN 81 MG TAB.CHEW GT SCH (08:20)
[2016-10-29] MEDS: LEVOTHYROXINE SODIUM 75 MCG TABLET GT SCH (08:20)
[2016-10-29] MEDS: MELOXICAM 7.5 MG TABLET GT SCH (08:20)
[2016-10-29] MEDS: METOPROLOL TARTRATE 50 MG TABLET GT SCH ×2 (09:00→21:00)
[2016-10-29] MEDS: CLOTRIMAZOLE 1% CREAM 30 GM TUBE TOP SCH ×2 (09:16→21:06)
[2016-10-29] MEDS: Z GUARD REMEDY PASTE 57 GM TUBE TOP SCH ×2 (09:16→21:06)
[2016-10-29 11:22] VITALS: BP 106/53
[2016-10-29 15:15] VITALS: BP 116/59
[2016-10-29 20:00] VITALS: BP 121/48
[2016-10-29] MEDS: FIBERSOURCE HN 1000ML LIQUID GT PRN (21:11)
[2016-10-30] MEDS: LORAZEPAM 1 MG TABLET PO PRN (01:21)
[2016-10-30 04:47] VITALS: BP 122/61
[2016-10-30] MEDS: METRONIDAZOLE 500 MG TABLET GT SCH ×3 (05:40→21:02)
--- NOTE | 2016-10-30 07:30 | NUR ---
Report received from manager shift. Patient AAOx1, confused. No acute distress noted, no complaints of signs of pain, FLACC scale used in addition to Hoang-Patiño scale. S1, S2 heart sounds noted, respirations clear and nonlabored. O2 sat WNL on RA. IV to right wrist 22G, no redness or swelling noted. Pereyra catheter in place, draining yellow urine. Contact isolation for C-Diff. G-tube site clean and dry, tube feeding stopped per orders. Will restart at 0800. Safety, fall, and isolation precautions maintained. Will continue to monitor.
--- NOTE | 2016-10-30 08:15 | NUR ---
G-tube patency checked via air bolus, patent. G-tube site clean and dry, no redness or swellling. Tube feeding restarted @ 60ml/hr. No other signs of acute distress noted.
[2016-10-30] MEDS: VALPROIC ACID 250 MG/5 ML LIQUID UDC GT SCH ×2 (09:01→20:07)
[2016-10-30] MEDS: OXYBUTYNIN CHLORIDE 5 MG TABLET GT SCH ×2 (09:01→18:10)
[2016-10-30] MEDS: METOPROLOL TARTRATE 50 MG TABLET GT SCH ×2 (09:01→20:30)
[2016-10-30] MEDS: LEVOTHYROXINE SODIUM 75 MCG TABLET GT SCH (09:02)
[2016-10-30] MEDS: MELOXICAM 7.5 MG TABLET GT SCH (09:02)
[2016-10-30] MEDS: CLOTRIMAZOLE 1% CREAM 30 GM TUBE TOP SCH ×2 (09:02→20:08)
[2016-10-30] MEDS: ASPIRIN 81 MG TAB.CHEW GT SCH (09:02)
[2016-10-30] MEDS: QUETIAPINE FUMARATE 25 MG TABLET GT SCH ×4 (09:02→20:08)
[2016-10-30] MEDS: Z GUARD REMEDY PASTE 57 GM TUBE TOP SCH ×2 (09:02→20:09)
[2016-10-30 12:35] VITALS: BP 113/63
[2016-10-30 12:38] LABS: HEMATOCRIT 37.9 % (37.0-47.0); HEMOGLOBIN 12.7 g/dL (12.0-16.0); RED BLOOD CELL COUNT(AUTO) 3.84 MIL/uL (4.20-5.40); RED CELL DISTRIBUTION WIDTH 13.5 % (11.5-14.5)
[2016-10-30 12:43] LABS: ALBUMIN 3.1 g/dL (3.4-5.0); BILIRUBIN,TOTAL 0.7 mg/dL (0.2-1.0); CALCIUM 8.9 mg/dL (8.5-10.1); CREATININE 0.8 mg/dL (0.6-1.3); MAGNESIUM 1.9 mg/dL (1.8-2.4); PHOSPHOROUS 3.5 mg/dL (2.5-4.9); POTASSIUM 3.7 mmol/L (3.5-5.1); TOTAL PROTEIN, SERUM 6.5 g/dL (6.4-8.2)
[2016-10-30 12:44] LABS: MEAN CORPUSCULAR HGB CONC 34 g/dL (32.0-37.0); MEAN CORPUSCULAR VOLUME 98.5 fL (81.0-99.0); WHITE BLOOD COUNT (AUTO) 11.9 K/uL (4.0-11.2)
[2016-10-30 13:06] LABS: PLATELET COUNT (AUTO) 147 K/uL (150-450)
[2016-10-30 13:51] LABS: BAND % (MANUAL) 5 % (0-10); NEUTROPHILS % (MANUAL) 79 % (42-75)
[2016-10-30 13:52] LABS: LYMPHOCYTES % (MANUAL) 10 % (20-40); MONOCYTES % (MANUAL) 6 % (2-10)
[2016-10-30 13:54] LABS: PLATELET ESTIMATE ADEQUATE
[2016-10-30 17:00] VITALS: BP 113/66
[2016-10-30] MEDS: FIBERSOURCE HN 1000ML LIQUID GT PRN (19:37)
[2016-10-30 20:00] VITALS: BP 124/71
--- NOTE | 2016-10-31 01:00 | NUR ---
FILLED OUT INCIDENT REPORT IN REGARDS OF ABSENT PATIENT'S BELONGINGS. CHECKED SAFE WITH NURSING RECREATIONAL LEADER AND SECURITY FOR PT'S BELONGINGS POSSIBLY BEING IN ADMITTING SAFE. RECHECKED PT'S ROOM WITH BUSINESS SERVICES VICE PRESIDENT, BELONGINGS NOWHERE TO BE FOUND. CHECKED AT MHU, PER AIDEE CHARGE NURSE PT'S BELONGINGS ARE NOT LOCATED IN MHU. ADVISED SECURITY JOSÉ MIGUEL THAT BELONGINGS ARE MISSING.
[2016-10-31] MEDS: LORAZEPAM 1 MG TABLET PO PRN (01:11)
[2016-10-31 05:46] VITALS: BP 130/63
[2016-10-31] MEDS: METRONIDAZOLE 500 MG TABLET GT SCH ×2 (06:39→13:58)
[2016-10-31 06:51] LABS: BASOPHILS # (AUTO) 0.1 K/uL (0.0-0.2); BASOPHILS % (AUTO) 1.4 % (0.0-2.0); EOSINOPHILS # (AUTO) 0.6 K/uL (0.0-0.7); EOSINOPHILS % (AUTO) 6.2 % (0.0-7.0); HEMATOCRIT 37.4 % (37.0-47.0); HEMOGLOBIN 12.3 g/dL (12.0-16.0); LYMPHOCYTES # (AUTO) 1.9 K/uL (0.8-4.8); LYMPHOCYTES % (AUTO) 20.6 % (20.5-51.5); MEAN CORPUSCULAR HEMOGLOBIN 32.9 uug (27.0-31.0); MEAN CORPUSCULAR HGB CONC 33 g/dL (32.0-37.0); MEAN CORPUSCULAR VOLUME 99.8 fL (81.0-99.0); MONOCYTES # (AUTO) 0.7 K/uL (0.1-1.30); MONOCYTES % (AUTO) 7.2 % (0.0-11.0); NEUTROPHILS # (AUTO) 6.1 K/uL (1.8-8.9); NEUTROPHILS % (AUTO) 64.6 % (38.5-71.5); PLATELET COUNT (AUTO) 122 K/uL (150-450); RED BLOOD CELL COUNT(AUTO) 3.74 MIL/uL (4.20-5.40); RED CELL DISTRIBUTION WIDTH 13.6 % (11.5-14.5); WHITE BLOOD COUNT (AUTO) 9.4 K/uL (4.0-11.2)
[2016-10-31 07:23] LABS: ALBUMIN 2.9 g/dL (3.4-5.0); BILIRUBIN,TOTAL 0.8 mg/dL (0.2-1.0); CALCIUM 8.5 mg/dL (8.5-10.1); CREATININE 0.7 mg/dL (0.6-1.3); PHOSPHOROUS 3.6 mg/dL (2.5-4.9); POTASSIUM 3.8 mmol/L (3.5-5.1); TOTAL PROTEIN, SERUM 6.2 g/dL (6.4-8.2)
[2016-10-31] MEDS: LEVOTHYROXINE SODIUM 75 MCG TABLET GT SCH (09:46)
[2016-10-31] MEDS: OXYBUTYNIN CHLORIDE 5 MG TABLET GT SCH ×2 (09:46→16:55)
[2016-10-31] MEDS: ASPIRIN 81 MG TAB.CHEW GT SCH (09:46)
[2016-10-31] MEDS: MELOXICAM 7.5 MG TABLET GT SCH (09:46)
[2016-10-31] MEDS: VALPROIC ACID 250 MG/5 ML LIQUID UDC GT SCH (09:47)
[2016-10-31] MEDS: Z GUARD REMEDY PASTE 57 GM TUBE TOP SCH (09:47)
[2016-10-31] MEDS: QUETIAPINE FUMARATE 25 MG TABLET GT SCH ×3 (09:47→16:55)
[2016-10-31] MEDS: CLOTRIMAZOLE 1% CREAM 30 GM TUBE TOP SCH (09:48)
[2016-10-31 10:03] VITALS: BP 130/90
[2016-10-31] MEDS: METOPROLOL TARTRATE 50 MG TABLET GT SCH (10:03)
[2016-10-31] MEDS ORDERED: CLOT30CR24 TOP (11:24)
[2016-10-31] MEDS ORDERED: Metoprolol Tartrate GT (11:24)
[2016-10-31] MEDS ORDERED: Nutritional Supplement/Fiber GT (11:24)
[2016-10-31] MEDS ORDERED: Metronidazole GT (11:24)
[2016-10-31] MEDS ORDERED: MENT71OI TOP (11:24)
[2016-10-31] MEDS ORDERED: ACET650S26 GT (11:24)
[2016-10-31] MEDS ORDERED: VALP250S12 GT (11:24)
[2016-10-31] MEDS ORDERED: QUET25TA GT (11:24)
--- NOTE | 2016-10-31 12:00 | NUR ---
REMOVED PT'S QUINONES. SOPHIE COLOR URINE IS NOTED. 850 ML OF URINE IS NOTED INSIDE OF THE QUINONES. PICTURES OF SKIN ARE TAKEN.
--- NOTE | 2016-10-31 12:59 | NUR ---
CALLED GENNY. PATIENT CONTACT NAME, PER GENNY "I DO NOT KNOW IF SHE RECEIVED VACCINE SHOTS".
--- NOTE | 2016-10-31 14:19 | NUR ---
The patient will be discharged today to [facility] [ ; [id number] [place] [address]] via [facility]. Spoke to her daughter, Jessica [ ], about the discharge and she agreed. She is at [facility] packing up her belongings to transfer to [facility]. Also spoke to Keron Bhatia [ ] who helped in finding placement and had been in contact with the patient's daughter. The patient's daughter would like for her to be evaluated by hospice once she is in the [facility]. Her RN, Tenisha, is aware of her discharge plan.
--- NOTE | 2016-10-31 16:30 | NUR ---
PT WAS ABLE TO URINATE W/O QUINONES CATHETER IN DIAPER. GAVE REPORT TO AMBULANCE STAFF, INCLUDED PRESCRIPTION AND D/C DOCUMENTATION TO THE PT'S FILE WITH PT. NO S/S OF RESPIRATORY DISTRESS NOTED. PT IS AGITATED. IV/WRISTBAND REMOVED. NO PAIN NOTED. GTUBE HAS NOT OUTPUT. GTUBE IS INTACT/PATENT. ALL SAFETY NEEDS ARE MET.
== END 2016-10-31 16:50 | DRG 720 ==
LOC: ER 12:34 → MED 14:33 → TELE 17:00 → TELE-TD 10-10 09:16 → MED 10-10 19:01
PROVIDERS: ADMIT Internal Medicine; ATTEND Internal Medicine
DX: A41.9 Sepsis, unspecified organism (principal); N17.0 Acute kidney failure with tubular necrosis; E43 Unspecified severe protein-calorie malnutrition; G93.40 Encephalopathy, unspecified; A04.7 Enterocolitis due to Clostridium difficile; F33.3 Major depressive disorder, recurrent, severe with psychotic symptoms; F01.51 Vascular dementia, unspecified severity, with behavioral disturbance; I48.91 Unspecified atrial fibrillation; D68.59 Other primary thrombophilia; D69.6 Thrombocytopenia, unspecified; R13.10 Dysphagia, unspecified; F03.91 Unspecified dementia, unspecified severity, with behavioral disturbance; Z93.1 Gastrostomy status; N39.0 Urinary tract infection, site not specified; E03.9 Hypothyroidism, unspecified; Z86.73 Personal history of transient ischemic attack (TIA), and cerebral infarction without residual deficits; E87.6 Hypokalemia; E83.42 Hypomagnesemia; B95.8 Unspecified staphylococcus as the cause of diseases classified elsewhere; D50.9 Iron deficiency anemia, unspecified; I51.7 Cardiomegaly; K21.9 Gastro-esophageal reflux disease without esophagitis; Z79.899 Other long term (current) drug therapy; I45.81 Long QT syndrome; R53.1 Weakness; R33.9 Retention of urine, unspecified; R73.9 Hyperglycemia, unspecified; R17 Unspecified jaundice; R47.02 Dysphasia; Z68.1 Body mass index [BMI] 19.9 or less, adult; F29 Unspecified psychosis not due to a substance or known physiological condition; R65.20 Severe sepsis without septic shock
CPT/HCPCS: 36415; 51702; 70030-TC; 70450; 71010; 80164; 80307; 83735; 84100; 84443; 85025; 85730; 87077; 87086; 93005; 97001; 97116; 97530; A4217; A4663; C1758; G0480-TC; G6040-TC; J0282; J0696; J1200; J1580; J1630; J1956; J2060; J2358; J3370; J3475; J3490; J7030; J7050; J7060